=== PATIENT | female | born 1955 | race Caucasian/White ===

== ENCOUNTER → 2016-12-17 | Outpatient (CLI) | payer OTHER ==
--- NOTE | 2016-12-17 12:02 | MM ---
Reason for exam: additional evaluation requested from prior study. Last mammogram was performed 1 year ago. History: Patient is postmenopausal and has history of bilateral breast cancer at age 55. Malignant left breast needle localization of both breasts, January 06, 2012. Lumpectomy of the left breast, January 06, 2012. Malignant left mammotome panel of the left breast, December 17, 2011. Radiation therapy of the left breast, 2011. Benign right mammotome panel of the right breast, July 07, 2007. Implant Removal of both breasts, 1992. Took hormonal contraceptives for 6 months beginning at age 20. Taking antineoplastic for 5 years beginning at age 55. Physical Findings: Nurse did not find any significant physical abnormalities on exam. MG Diagnostic Mammo w CAD BINTA Bilateral CC and MLO view(s) were taken. Prior study comparison: December 17, 2015, bilateral MG diagnostic mammo w CAD BINTA. November 06, 2014, bilateral MG diagnostic mammo w CAD BINTA. October 24, 2013, mammogram, performed at [facility]. The breast tissue is heterogeneously dense. This may lower the sensitivity of mammography. Focal asymmetry in the right breast is unchanged and in the left posterior therapy change. These results were verbally communicated with the patient and result sheet given to the patient on 12/17/16. ASSESSMENT: Benign, BI-RAD 2 RECOMMENDATION: Routine screening mammogram of both breasts in 1 year.
== END | disposition home or self-care (01) ==
LOC: RADMAMWWP 10:59
PROVIDERS: ATTEND Obstetrics & Gynecology
DX: R92.8 Other abnormal and inconclusive findings on diagnostic imaging of breast (principal)

== ENCOUNTER → 2018-01-25 | Outpatient (CLI) | payer OTHER ==
--- NOTE | 2018-01-26 18:09 | BD ---
EXAMINATION TYPE: Bone Density DATE OF EXAM: 01/25/2018 COMPARISON: NONE CLINICAL HISTORY: 62-year-old female disorder of bone density Height: 61 Weight: 105.6 FRAX RISK QUESTIONS: Alcohol (3 or more units per day): no Family History (Parent hip fracture): no Glucocorticoids (More than 3mos): no (Ex: prednisone, prednisolone, methylprednisolone, dexamethasone, and hydrocortisone). History of Fracture in Adulthood: no Secondary Osteoporosis: 1. Type 1 Diabetes: no 2. Hyperthyroidism: no 3. Menopause before 45: no 4. Malnutrition: no 5. Chronic liver disease: no Rheumatoid Arthritis: no Current Tobacco Use: no RISK FACTORS HISTORY OF: Family History of Osteoporosis: yes Active: yes Diet low in dairy products/other sources of calcium: low in dairy but takes calcium Postmenopausal woman: age 50 Lost more than 2 inches in height since high school: no MEDICATIONS: zetia, ambien Thyroid Medications: levothyroxine 125mcg How Long: since age 18 Additional History: EXAM MEASUREMENTS: Bone mineral densitometry was performed using the [employer] System. Bone mineral density as measured about the Lumbar spine is: ----- L1-L4(G/cm2): 0.968 T Score Values are as follows: ----- L2: -1.9 ----- L3: -1.6 ----- L4: -2.0 ----- L1-L4: -1.8 Bone mineral density has: increased 2.3 % since study of: 12.17.2015 Bone mineral density about the R hip (g/cm2): 0.779 Bone mineral density about the L hip (g/cm2): 0.747 T Score values are as follows: -----R Neck: -1.9 -----L Neck: -2.1 -----R Total: -1.9 -----L Total: -2.2 Bone mineral density has: -7.0 % since study of: 12.17.2015 IMPRESSION: Osteopenia (T Score between -2.5 and -1). There is slightly increased risk of fracture and the patient may be considered for treatment. Re-Screen 2-5 years. NOTE: T-SCORE=SD OF THE YOUNG ADULT MEAN.
--- NOTE | 2018-01-27 10:08 | MM ---
Reason for exam: screening (asymptomatic). Last mammogram was performed 1 year and 1 month ago. History: Patient is postmenopausal and has history of bilateral breast cancer at age 55. Malignant left breast needle localization of both breasts, January 06, 2012. Lumpectomy of the left breast, January 06, 2012. Malignant left mammotome panel of the left breast, December 17, 2011. Radiation therapy of the left breast, 2011. Benign right mammotome panel of the right breast, July 07, 2007. Implant Removal of both breasts, 1992. Took hormonal contraceptives for 6 months beginning at age 20. Taking antineoplastic for 5 years beginning at age 55. Physical Findings: A clinical breast exam by your physician is recommended on an annual basis and results should be correlated with mammographic findings. MG 3D Screening Mammo W/Cad Bilateral CC and MLO view(s) were taken. Prior study comparison: December 17, 2016, bilateral MG diagnostic mammo w CAD BINTA. December 17, 2015, bilateral MG diagnostic mammo w CAD BINTA. Previous mammotome biopsy in the right breast. Global asymmetry in the right breast are unchanged. Post surgical deformity in the left breast. No significant changes when compared with prior studies. ASSESSMENT: Benign, BI-RAD 2 RECOMMENDATION: Routine screening mammogram of both breasts.
== END | disposition home or self-care (01) ==
LOC: RADMAMWWP 13:59
PROVIDERS: ATTEND Family Medicine
DX: Z12.31 Encounter for screening mammogram for malignant neoplasm of breast (principal); M85.80 Other specified disorders of bone density and structure, unspecified site
CPT/HCPCS: 77063; 77067; 77080

== ENCOUNTER → 2019-02-28 | Outpatient (CLI) | payer OTHER ==
--- NOTE | 2019-03-02 13:22 | MM ---
Reason for exam: screening (asymptomatic). Last mammogram was performed 1 year and 1 month ago. History: Patient is postmenopausal and has history of bilateral breast cancer at age 55. Malignant left breast needle localization of both breasts, January 06, 2012. Lumpectomy of the left breast, January 06, 2012. Malignant left mammotome panel of the left breast, December 17, 2011. Radiation therapy of the left breast, 2011. Benign right mammotome panel of the right breast, July 07, 2007. Implant Removal of both breasts, 1992. Took hormonal contraceptives for 6 months beginning at age 20. Taking antineoplastic for 5 years beginning at age 55. Physical Findings: A clinical breast exam by your physician is recommended on an annual basis and results should be correlated with mammographic findings. MG Screening Mammo w CAD Bilateral CC and MLO view(s) were taken. Prior study comparison: January 25, 2018, bilateral MG 3d screening mammo w/cad. December 17, 2016, bilateral MG diagnostic mammo w CAD BINTA. The breast tissue is heterogeneously dense. This may lower the sensitivity of mammography. Previous mammotome biopsy in the right breast. Post surgical and post therapy changes left breast. Right lower inner focal asymmetry is unchanged. No significant changes when compared with prior studies. ASSESSMENT: Benign, BI-RAD 2 RECOMMENDATION: Routine screening mammogram of both breasts in 1 year.
== END | disposition home or self-care (01) ==
LOC: RADMAMWWP 14:00
PROVIDERS: ATTEND Family Medicine
DX: Z12.31 Encounter for screening mammogram for malignant neoplasm of breast (principal)
CPT/HCPCS: 77067

== ENCOUNTER → 2020-04-15 | Outpatient (CLI) | payer MEDICARE, OTHER ==
--- NOTE | 2020-04-15 14:34 | MM ---
Reason for exam: additional evaluation requested from prior study. Last mammogram was performed 1 year and 2 months ago. History: Patient is postmenopausal and has history of bilateral breast cancer at age 55. Malignant left breast needle localization of both breasts, January 06, 2012. Lumpectomy of the left breast, January 06, 2012. Malignant left mammotome panel of the left breast, December 17, 2011. Radiation therapy of the left breast, 2011. Benign right mammotome panel of the right breast, July 07, 2007. Implant Removal of both breasts, 1992. Took hormonal contraceptives for 6 months beginning at age 20. Took antineoplastic for 5 years beginning at age 55. Physical Findings: Nurse did not find any significant physical abnormalities on exam. MG 3D Diag Mammo W/Cad BINTA Bilateral CC and MLO view(s) were taken. Prior study comparison: February 28, 2019, bilateral MG screening mammo w CAD. January 25, 2018, bilateral MG 3d screening mammo w/cad. The breast tissue is heterogeneously dense. This may lower the sensitivity of mammography. Previous mammotome biopsy in the right breast. Post surgical changes left breast. No significant new findings when compared with previous films. These results were verbally communicated with the patient and result sheet given to the patient on 04/15/20. ASSESSMENT: Benign, BI-RAD 2 RECOMMENDATION: Routine screening mammogram of both breasts in 1 year.
--- NOTE | 2020-04-16 07:19 | BD ---
EXAMINATION TYPE: Axial Bone Density DATE OF EXAM: 04/15/2020 COMPARISON: 01/25/2018 CLINICAL HISTORY: Height: 60.5 IN Weight: 109 LBS RISK FACTORS HISTORY OF: Family History of Osteoporosis: YES MOTHER Active: YES Diet low in dairy products/other sources of calcium: YES Postmenopausal woman: AGE 50 MEDICATIONS: Thyroid Medications: YES Which medication: Levothyroxine How Lon + YEARS Osteoporosis Medications: NOT NOW Which medication: Fosamax How Long: TOOK PREVIOUSLY FOR 1 YEAR Additional Medications: CALCIUM, VIT D, LEVOTHYROXINE, ZETIA, AMBIEN, Additional History: BREAST CANCER WITH RADIATION EXAM MEASUREMENTS: Bone mineral densitometry was performed using the [employer]. Bone mineral density as measured about the Lumbar spine is: ----- L1-L4(G/cm2): 0.882 T Score Values are as follows: ----- L2: -2.5 ----- L3: -1.9 ----- L4: -3.4 ----- L1-L4: -2.5 Bone mineral density has: Decreased -10.2% since study of: 01/25/2018 Bone mineral density about the R hip (g/cm2): 0.770 Bone mineral density about the L hip (g/cm2): 0.738 T Score values are as follows: -----R Neck: -1.9 -----L Neck: -2.2 -----R Total: -1.9 -----L Total: -2.3 Bone mineral density has: Decreased -0.8% since study of: 01/25/2018 IMPRESSION: Osteoporosis lumbar spine. NOTE: T-SCORE=SD OF THE YOUNG ADULT MEAN.
== END | disposition home or self-care (01) ==
LOC: RADMAMWWP 13:42
PROVIDERS: ATTEND Family Medicine
DX: Z08 Encounter for follow-up examination after completed treatment for malignant neoplasm (principal); M81.0 Age-related osteoporosis without current pathological fracture; Z85.3 Personal history of malignant neoplasm of breast; Z86.000 Personal history of in-situ neoplasm of breast; Z90.12 Acquired absence of left breast and nipple
CPT/HCPCS: 77080; 77066; G0279; 77062

== ENCOUNTER 2020-04-30 09:41 | Day surgery (SDC) | payer MEDICARE, OTHER ==
[2020-04-24 10:47] VITALS: BMI 20.7
[~2020-04-30 09:41] MED LIST: LACTATED RINGERS 1,000 ML IV SCH
[2020-04-30 10:16] VITALS: TEMP 98.4
[2020-04-30] MEDS ORDERED: SCOPOLAMINE 1.5MG/72HR PATCH TRANSDERM ONE (10:23)
[2020-04-30] MEDS ORDERED: LIDOCAINE 1% INJ 10MG/ML (20 ML MDV) ONE (10:44)
[2020-04-30] MEDS ORDERED: fentaNYL (PF) 50 MCG/ML 2 ML AMP ONE (10:44)
[2020-04-30] MEDS ORDERED: MIDAZOLAM 2 MG/2 ML VIAL ONE (10:44)
[2020-04-30] MEDS ORDERED: PROPOFOL 10 MG/ML 20 ML VIAL IV ONE (10:44)
--- NOTE | 2020-04-30 11:17 | P.PCN ---
Date of Procedure: 04/30/20 Procedure(s) Performed: BRIEF HISTORY: Patient is a 64-year-old pleasant white female scheduled for an elective colonoscopy as a part of evaluation of positive cologuard. Her last colonoscopy was 12 years ago. PROCEDURE PERFORMED: Colonoscopy with biopsy and tattooing with Jessica ink.. PREOPERATIVE DIAGNOSIS: Positive cologuard. IV sedation per Anesthesia. PROCEDURE: After informed consent was obtained, the patient, was brought into the endoscopy unit. IV sedation was administered by Anesthesia under continuous monitoring. Digital rectal examination was normal. Initially the Olympus CF-160 flexible video colonoscope was then inserted in the rectum, gradually advanced into the cecum without any difficulty. Careful examination was performed as the scope was gradually being withdrawn. Ileocecal valve and the appendiceal orifice were visualized and appeared normal. Prep was excellent. Mucosa of the cecum, ascending colon, transverse colon, appeared normal. In the distal descending colon at 45 cm from the anal verge there was a 3-4 cm submucosal mass identified with normal-appearing overlying mucosa. Multiple biopsies were done in this area. Tattooing with Jessica ink was performed. Rest of the descending colon, sigmoid colon, and rectum appeared normal. Retroflexion was performed in the rectum and no lesions were seen. The patient tolerated the procedure well. IMPRESSION: 3-4 cm submucosal mass in the distal descending colon at 40 cm from the anal verge status post multiple biopsies followed by tattooing with Jessica ink Rest of the colon appeared normal RECOMMENDATIONS: Findings of this examination were discussed with the patient as well as her family. She was advised to follow with the biopsy results. She is scheduled for CT of abdomen and pelvis next week and she will be seen in office in a week.
[2020-04-30 11:31] VITALS: BP 131/74; PULSE 105; RESP 20
== END 2020-04-30 12:12 | disposition home or self-care (01) ==
LOC: ORWHC2ENDO 09:41
PROVIDERS: ATTEND Internal Medicine Gastroenterology
DX: K63.89 Other specified diseases of intestine (principal); E07.9 Disorder of thyroid, unspecified; Z88.2 Allergy status to sulfonamides; Z88.0 Allergy status to penicillin; Z79.899 Other long term (current) drug therapy; Z79.890 Hormone replacement therapy; Z98.890 Other specified postprocedural states; Z91.89 Other specified personal risk factors, not elsewhere classified; Z87.898 Personal history of other specified conditions
CPT/HCPCS: 93005; 88305; 45380; 45381; J2250; J2001; J3010; J2704; 44404

== ENCOUNTER → 2020-05-01 | Outpatient (CLI) | payer MEDICARE, OTHER ==
[2020-05-01 07:40] LABS: African American GFR (CKD) >90 (>60 ml/min/1.73 sqM); Blood Urea Nitrogen 11 mg/dL (7-17); Non-African American GFR(CKD) >90 (>60 ml/min/1.73 sqM)
--- NOTE | 2020-05-01 09:55 | CT ---
EXAMINATION TYPE: CT abdomen pelvis w con DATE OF EXAM: 05/01/2020 COMPARISON: NONE HISTORY: 64-year-old female D12.4, Extrinsic colon mass per colonoscopy. TECHNIQUE: Contiguous axial scanning of the abdomen and pelvis following administration of 100 ml Iso alycia 300 IV contrast. Delayed images through the kidneys and coronal/sagittal reconstructions perform ed. CT DLP: 340.6 mGycm Automated exposure control for dose reduction was used. FINDINGS: Heart normal size without pericardial effusion. Lung bases clear without pleural effusion. Liver normal size. There may been mild underlying fatty infiltration. No focal lesion is seen. Portal venous system is patent. Normal distal tapering of the bile duct. Gallbladder, adrenal glands, kidneys, spleen, and pancreas appear within normal limits. No dilated small bowel, free fluid, free air. No mesenteric or retroperitoneal lymphadenopathy. A few scattered, but nonenlarged mesenteric lymph nodes measure up to 4 mm. Oral contrast has only progressed to the rectum. No significant stool burden. No pericolonic inflamma tory change. There is a heterogeneously enhancing focal rounded thickening along the inferior margin of the distal transverse colon prior to the splenic flexure, axial image 27 and coronal image 24 measuring 2.4 cm wide by 2.4 cm AP by 2.2 cm craniocaudal. This appears mural based and separate from adjacent structu res. Bladder is urine distended. Uterus anteverted. Small bilateral ovaries. No abnormal fluid collection in the pelvis or pelvic lymphadenopathy. Bones: Moderate to advanced degenerative disc disease L5-S1. Facet arthropathy over lumbar spine with trace grade 1 retrolisthesis at L2-L3. IMPRESSION: 1. HETEROGENEOUS ENHANCING FOCAL ROUNDED THICKENING ALONG THE INFERIOR MARGIN OF THE DISTAL TRANSVERS E COLON, PRIOR TO THE SPLENIC FLEXURE MEASURING 2.4 CM. SUSPECTED SUBMUCOSAL MASS WITH DIFFERENTIAL C ONSIDERATIONS INCLUDING GIST, CARCINOID, AND VARIOUS MESENCHYMAL TUMORS. COLON CANCER SHOULD STILL BE EXCLUDED. 2. NO SUSPICIOUS LYMPHADENOPATHY OR OTHER MASSES ARE SEEN.
== END | disposition home or self-care (01) ==
LOC: RADCTMAIN 06:57
PROVIDERS: ATTEND Internal Medicine Gastroenterology
DX: R93.3 Abnormal findings on diagnostic imaging of other parts of digestive tract (principal); D12.4 Benign neoplasm of descending colon
CPT/HCPCS: 82565; 84520; 74177; 36415; Q9967 ×2

== ENCOUNTER → 2020-06-24 | Outpatient (CLI) | payer MEDICARE ==
[2020-06-24 16:28] LABS: HCT 41.4 % (34.0-46.0); HGB 13.9 gm/dL (11.4-16.0); MCHC 33.5 g/dL (31.0-37.0); MCV 83.7 fL (80.0-100.0); Mean Platelet Volume 6.8; Platelet Count 259 k/uL (150-450); RBC 4.95 m/uL (3.80-5.40); RDW 12.8 % (11.5-15.5); WBC 6.8 k/uL (3.8-10.6)
[2020-06-24 16:42] LABS: Potassium 4.3 mmol/L (3.5-5.1)
== END | disposition home or self-care (01) ==
LOC: LABPAT 15:37
PROVIDERS: ATTEND Surgery
DX: Z01.818 Encounter for other preprocedural examination (principal); K63.9 Disease of intestine, unspecified
CPT/HCPCS: 36415; 80051; 85027

== ENCOUNTER 2020-06-30 09:00 | Inpatient (IN) | payer MEDICARE ==
[~2020-06-30 09:00] MED LIST changes: +ACETAMINOPHEN TAB 500 MG TAB PO PRN; +ALVIMOPAN 12 MG CAPSULE PO PRN; +DEXAMETHASONE SOD PHOSPHATE 4 MG/ML 1 ML VIAL IV ONE; +HEPARIN SODIUM,PORCINE 5,000 UNIT/ML 1 ML VIAL SQ PRN; +HYDROmorphone 0.5 MG/0.5 ML SYRINGE IVP PRN; -LACTATED RINGERS 1,000 ML IV SCH; +LIDOCAINE 1% (10MG/ML) FOR IV START INTRADERMA PRN; +MIDAZOLAM 2 MG/2 ML VIAL IV PRN; +ONDANSETRON 4 MG/2 ML VIAL IVP ONE; +metroNIDAZOLE-NS PMX 500 MG in SALINE 1 100ML.BAG IVPB PRN
[2020-06-30] MEDS ORDERED: LACTATED RINGERS 1,000 ML IV ONE ×2 (10:39→13:32)
[2020-06-30] MEDS ORDERED: NALOXONE 0.4 MG/ML 1 ML VIAL IV PRN (10:41)
[2020-06-30] MEDS ORDERED: NALBUPHINE 10 MG/ML (1 ML AMP) IV PRN (10:41)
[2020-06-30] MEDS ORDERED: MIDAZOLAM 2 MG/2 ML VIAL IVP ONE (11:23)
[2020-06-30] MEDS ORDERED: HEPARIN SODIUM,PORCINE 5,000 UNIT/ML 1 ML VIAL ONE ×2 (11:50→12:09)
--- NOTE | 2020-06-30 11:58 | P.GSHP ---
History of Present Illness H&P Date: 06/30/20 Chief Complaint: Colon mass 64-year-old female here today for colon resection. Patient was found on colonoscopy to have a submucosal mass in the region of the splenic flexure. Biopsies were benign. CAT scan confirmed a mass in the distal transverse colon and the submucosal region. By palpation this mass was firm and suspicious per GI. This area was tattooed. Patient is otherwise asymptomatic. She underwent colonoscopy because of a positive cologuard test. Past Medical History Past Medical History: Cancer, Hyperlipidemia, Osteoarthritis (OA), Pneumonia, Thyroid Disorder Additional Past Medical History / Comment(s): BREAST CANCER -LEFT BREAST 2011- had radiation tx, "tumor in lining of colon", overactive bladder, "prone to UTI's" History of Any Multi-Drug Resistant Organisms: None Reported Past Surgical History: Appendectomy, Breast Surgery, Tubal Ligation Additional Past Surgical History / Comment(s): LEFT LUMPECTOMY, LEFT BREAST BIOPSY , BILATERAL BREAST IMPLANTS AND THAN REMOVED(prior to breast cancer dx) Past Anesthesia/Blood Transfusion Reactions: Motion Sickness, Postoperative Nausea & Vomiting (PONV) Smoking Status: Never smoker - Past Family History Father Family Medical History: Cancer Mother Family Medical History: Cancer Son(s) Family Medical History: Cancer Additional Family Medical History / Comment(s): skin Brother(s) Family Medical History: Cancer Additional Family Medical History / Comment(s): skin Medications and Allergies Home Medications Medication Instructions Recorded Confirmed Type Ezetimibe [Zetia] 10 mg PO HS 04/24/20 06/30/20 History Levothyroxine Sodium [Synthroid] 100 mcg PO DAILY 04/24/20 06/30/20 History Multivitamins, Thera [Multivitamin 1 tab PO DAILY 04/24/20 06/30/20 History (formulary)] Zolpidem [Ambien] 2.5 mg PO HS PRN 04/24/20 06/30/20 History Aspirin [Adult Low Dose Aspirin EC] 81 mg PO HS 06/23/20 06/30/20 History Calcium + Vitamin D(Dose Unk) 1 tab PO HS 06/23/20 06/30/20 History Cyclobenzaprine [Flexeril] 2.5 mg PO HS PRN 06/23/20 06/30/20 History Magnesium 250 mg PO HS 06/23/20 06/30/20 History Allergies Allergy/AdvReac Type Severity Reaction Status Date / Time ampicillin Allergy Rash/Hives Verified 06/30/20 10:46 Sulfa (Sulfonamide Allergy Unknown Verified 06/30/20 10:46 Antibiotics) Surgical - Exam Vital Signs Temp Pulse Resp BP Pulse Ox 98.7 F 110 H 16 140/79 100 06/30/20 11:00 06/30/20 11:00 06/30/20 11:00 06/30/20 11:00 06/30/20 11:00 Physical exam: General: Well-developed, well-nourished HEENT: Normocephalic, sclerae nonicteric Abdomen: Nontender, nondistended Extremities: No edema Neuro: Alert and oriented Assessment and Plan (1) Colonic mass Narrative/Plan: 64-year-old female with mass involving the distal transverse colon. This was confirmed by CAT scan. We'll proceed with segmental resection at this time. Risks of bleeding, infection, scarring, numbness, hernia, splenic injury, anastomotic dehiscence, possible need for ostomy, nephro ureteral injury, anesthesia related complications. She understands and wishes to proceed. Current Visit: Yes Status: Acute Code(s): K63.89 - OTHER SPECIFIED DISEASES OF INTESTINE SNOMED Code(s): 949752375
--- NOTE | 2020-06-30 11:58 | P.ANPRN ---
Procedure Note - Anesthesia - Epidural/Spinal Epidural Date of Procedure: 06/30/20 Procedure Start Time: : Procedure Stop Time: 11:36 Location of Patient: PreOp Indication: Acute Post-Operative Pain, Requested by Surgeon Sedation Type: Sedate with meaningful contact maintained Preparation: Sterile Dressing Position: Sitting Catheter: Indwelling Needle Guage: 18 Injectate: Test Dose Lidocaine1.5% w/1:200,000 epi Blood Aspirated: No Pain Paresthesia on Injection Noted: No Events: Uneventful and Well Tolerated (Catheter taped at 11 cm rosales on skin.)
[2020-06-30] MEDS ORDERED: SCOPOLAMINE 1.5MG/72HR PATCH TRANSDERM ONE (12:01)
[2020-06-30] MEDS ORDERED: SUCCINYLCHOLINE CHLORIDE 100 MG/5 ML SYR IV ONE (12:09)
[2020-06-30] MEDS ORDERED: fentaNYL (PF) 50 MCG/ML 2 ML AMP ONE (12:09)
[2020-06-30] MEDS ORDERED: NEOSTIGMINE 1 MG/ML 10 ML VIAL ONE (12:09)
[2020-06-30] MEDS ORDERED: LIDOCAINE 1% INJ 10MG/ML (20 ML MDV) ONE (12:09)
[2020-06-30] MEDS ORDERED: PROPOFOL 10 MG/ML 20 ML VIAL IV ONE (12:09)
[2020-06-30] MEDS ORDERED: ROCURONIUM 10 MG/ML (5 ML VIAL) IV ONE (12:09)
[2020-06-30] MEDS ORDERED: GLYCOPYRROLATE 0.2 MG/ML 2 ML VIAL ONE (12:09)
[2020-06-30] MEDS ORDERED: METOCLOPRAMIDE 5 MG/ML 2 ML VIAL IVP PRN (13:38)
[2020-06-30] MEDS ORDERED: HYDROmorphone 1 MG/ML 1 ML SYRINGE IVP PRN (13:38)
[2020-06-30] MEDS ORDERED: BENZOCAINE/MENTHOL LOZENG 1 EACH LOZENGE MUCOUS MEM PRN (13:38)
--- NOTE | 2020-06-30 13:44 | P.OP ---
Date of Procedure: 06/30/20 Procedure(s) Performed: PREOPERATIVE DIAGNOSIS: Transverse colon mass POSTOPERATIVE DIAGNOSIS: Same PROCEDURE: Partial colectomy SURGEON: Tony EBL: 25 mL ANESTHESIA: General COMPLICATIONS: None OPERATIVE PROCEDURE: Patient place in the operative table in the supine position. The patient was placed under general anesthesia. The abdomen was prepped and draped in usual sterile fashion. A vertical incision was made extending from the supra to infraumbilical location. The fascia was divided as well. The Bookwalter retractor was utilized. The patient's mass was easily identified in the distal transverse colon. The patient had a redundant transverse colon. The mass was approximately 2-2.5 cm in maximum diameter. This had an atypical appearance to the overlying serosa. The area was not adherent to any other structures in the were no similar findings elsewhere in the abdomen after the colon and small bowel were fully inspected. Liver likewise appeared normal. 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 A partial resection took place. The bowel was divided proximal to that site using a linear 75 stapler. The bowel was divided distal to that in a similar fashion. The mesentery was divided using the LigaSure device. A vuig-vw-isso anastomosis then took place. The antimesenteric portion of the staple line was removed. The linear stapler was fired along the tenia in an antimesenteric fashion. The remaining defect was closed using a TX 60 device. A 3-0 GI silk crotch stitch was placed. The TX 60 stapler line was imbricated using 3-0 GI silk sutures as well. The anastomosis was widely patent. The abdomen was irrigated with saline. There was no evidence of any bleeding. The midline fascia was then reapproximated using 2 separate double-stranded #1 PDS sutures. The subcutaneous tissues were closed using 3-0 Vicryl sutures. The skin was then closed using sky. Sterile dressings were then applied. DISPOSITION: Stable to recovery room
[2020-06-30] MEDS: ROPIVACAINE 250 MG, HYDROMORPHONE (PF) 5 MG in SODIUM CHLORIDE 0.9% 200 ML EPIDURAL PRN ×3 (13:52→15:02)
[2020-06-30] MEDS: LACTATED RINGERS 1,000 ML IV SCH (16:20)
[2020-06-30] MEDS: D5-0.45% NACL WITH KCL 20MEQ/L 1,000 ML IV SCH (17:21)
[2020-06-30] MEDS: CALCIUM CARB-VIT D 500 MG-5 MCG TAB PO SCH (21:15)
[2020-06-30] MEDS: MAGNESIUM OXIDE 400 MG TAB PO SCH (21:15)
[2020-06-30] MEDS: FAMOTIDINE 20 MG/2 ML VIAL IV SCH (21:15)
[2020-06-30] MEDS: EZETIMIBE 10 MG TAB PO SCH (21:15)
--- NOTE | 2020-06-30 23:04 | CONS ---
CONSULTATION REASON FOR CONSULTATION: Advice regarding hyperlipidemia, DJD and other medical issues, requested by Dr. Jimenez. HISTORY OF PRESENT ILLNESS: This 64-year-old woman with past medical history of hyperlipidemia history of DJD, history of pneumonia, hypothyroidism, being followed by Dr. Dailey in the outpatient setting underwent partial colectomy for transverse colon mass. The patient is being closely monitored. There is no history of chest pain. No palpitations. No headache, loss of consciousness, nausea, vomiting, diarrhea, fever, rigor or chills at this time. PAST MEDICAL HISTORY: Hyperlipidemia, DJD, history of pneumonia and hypothyroidism. MEDICATIONS: Home medications are: Ambien 2.5 mg at bedtime p.r.n., multivitamins one p.o. daily, Magnesium, Synthroid 100 mcg p.o. daily, Zetia 10 mg, Flexeril, calcium with vitamin D, aspirin. ALLERGIES: AMPICILLIN, SULFA. FAMILY HISTORY: History of skin cancer in the family. SOCIAL HISTORY: No history of smoking. No history of alcohol intake. REVIEW OF SYSTEMS: ENT: No diminished vision. No diminished hearing. CARDIOVASCULAR: No angina or palpitations. RESPIRATORY: As mentioned earlier. GI: No nausea or vomiting. : No dysuria. NERVOUS SYSTEM: No numbness or weakness. ALLERGY/IMMUNOLOGY: No asthma, hayfever. MUSCULOSKELETAL: As mentioned earlier. HEMATOLOGY/ONCOLOGY: As mentioned earlier. ENDOCRINE as mentioned earlier. CONSTITUTIONAL: As mentioned earlier. DERMATOLOGY: Negative. RHEUMATOLOGY negative. PSYCHIATRY as mentioned earlier. PHYSICAL EXAM: Patient is alert, oriented x3. The pulse is 95. Blood pressure 144/70, respirations 16, temp is normal, pulse ox is 100 percent on 2 L. HEENT is conjunctivae normal. NECK: No JVD. CARDIOVASCULAR: S1, S2 muffled. RESPIRATORY: Breath sounds diminished in the bases. No rhonchi. No crackles. ABDOMEN: Soft, status post surgery. LEGS: No edema. No swelling. NERVOUS SYSTEM: Higher functions as mentioned earlier. Moves all four limbs. No focal deficits. LYMPHATICS: No lymph nodes palpable in the neck, axillae or groin. SKIN: No ulcers, rashes or bleeding. JOINTS: No active deforming arthropathy. LABS: Preoperative labs are CBC and CMP within normal limits. ASSESSMENT: 1. Status post partial colectomy for colon cancer transverse colon mass. 2. History of hyperlipidemia. 3. History of degenerative joint disease. 4. History of pneumonia. 5. History of hypothyroidism. 6. History of breast cancer. 7. History of appendectomy. 8. History of breast surgery. 9. History of anxiety. 10.FULL CODE. RECOMMENDATIONS AND DISCUSSION: This 64-year-old woman who presented with multiple medical issues, we will monitor the patient closely, continue the current medications, management and symptomatic treatment. Recommend initiate the home medications. DVT prophylaxis. Incentive spirometry. Otherwise, closely follow with Dr. Jimenez and the patient may be asked to follow up with Dr. Dailey after discharge. Thank you Dr. Jimenez for letting us participate in the care of this patient. MMODL / IJN: [id number] /
[2020-07-01] MEDS: D5-0.45% NACL WITH KCL 20MEQ/L 1,000 ML IV SCH ×2 (00:57→11:00)
[2020-07-01] MEDS: HEPARIN SODIUM,PORCINE 5,000 UNIT/ML 1 ML VIAL SQ SCH ×4 (00:57→23:56)
[2020-07-01] MEDS: LEVOTHYROXINE 100 MCG TAB PO SCH (06:01)
--- NOTE | 2020-07-01 06:29 | P.PN ---
Progress Note - Text Progress Note Date: 07/01/20 Patient without complaints. Tolerating clears. Denies headache or weakness. Pain 5/10. Epidural at 6 ml/hr. Epidural site clean and dry. POD#1 s/p colectomy Assessment and plan: will continue epidural. can increase rate later if needed, patient currently feels some lightheadedness. i would wait to increase rate until that began to resolve
[2020-07-01] MEDS: LACTATED RINGERS 1,000 ML IV SCH (06:56)
[2020-07-01] MEDS: ALVIMOPAN 12 MG CAPSULE PO SCH ×2 (07:37→20:42)
[2020-07-01] MEDS: MULTIVITAMINS, THERA 1 EACH TAB PO SCH (07:37)
[2020-07-01] MEDS: FAMOTIDINE 20 MG/2 ML VIAL IV SCH ×2 (07:38→20:42)
[2020-07-01 09:09] LABS: African American GFR (CKD) 38.8 (60.0-200.0); Anion Gap 6.2 mmol/L (4.00-12.00); BUN/Creat Ratio 11.88 Ratio (12.00-20.00); Calcium 8.6 mg/dL (8.7-10.3); Carbon Dioxide 23.8 mmol/L (21.6-31.8); Non-African American GFR(CKD) 33.5 (60.0-200.0); Potassium 5.1 mmol/L (3.5-5.5)
[2020-07-01 09:16] LABS: HCT 31.5 % (37.2-46.3); MCH 27.9 pg (27.0-32.0); MCHC 31.7 g/dL (32.0-37.0); MCV 87.7 fL (80.0-97.0); Mean Platelet Volume 10.5 fL (9.5-12.2); Platelet Count 379 X 10*3/uL (140-440); RBC 3.59 X 10*6/uL (4.10-5.20); RDW 12.8 % (11.5-14.5); WBC 17.25 X 10*3/uL (4.50-10.00)
[2020-07-01] MEDS ORDERED: SODIUM CHLORIDE 0.9% 1,000 ML IV ONE (09:27)
[2020-07-01 09:58] LABS: Basophils # (A) 0.03 X 10*3/uL (0.00-0.10); Basophils % (A) 0.2 %; Eosinophils # (A) 0 X 10*3/uL (0.04-0.35); Eosinophils % (A) 0 %; Lymphocytes % (A) 8.7 %; Monocytes # (A) 2.13 X 10*3/uL (0.20-1.00); Monocytes % (A) 12.3 %; Neutrophils # (A) 13.51 X 10*3/uL (1.80-7.70); Neutrophils % (A) 78.3 %
[2020-07-01] MEDS: ONDANSETRON 4 MG/2 ML VIAL IVP PRN (11:09)
--- NOTE | 2020-07-01 13:05 | P.PN ---
<Karol Tamez - Last Filed: 07/01/20 12:57> Subjective Progress Note Date: 07/01/20 CHIEF COMPLAINT: Transverse colon mass HISTORY OF PRESENT ILLNESS: Patient is status post partial colectomy. She has epidural in place for pain control. She reports no pain at this time. She denies any nausea or vomiting. She has been tachycardic heart rate as high as 136. She had decreased urine output. She reports of feeling dry, thirsty and dizzy. She was able to tolerate clear liquids. Afebrile. WBC 17.25 patient did receive a dose of steroids. Hgb 10 creatinine 1.6 potassium 5.1 glucose 171 PHYSICAL EXAM: VITAL SIGNS: Reviewed. GENERAL: Well-developed in no acute distress. HEENT: No sclera icterus. Extraocular movements grossly intact. Moist buccal mucosa. Head is atraumatic, normocephalic. ABDOMEN: Soft. Nondistended. Incisional dressing about a 2 cm sized area of blood saturation noted in the middle of the incisional dressing. NEUROLOGIC: Alert and oriented. Cranial nerves II through XII grossly intact. ASSESSMENT: 1. Transverse colon mass status post partial colectomy, postop day #1 2. Sinus tachycardia 3. Acute kidney injury and low urine output PLAN: -Patient given a 1 L IV fluid bolus this morning for tachycardia and low urine output -Due to elevated glucose level and potassium on the higher side will discontinue the D5 half normal saline with potassium IV fluids and switch patient normal saline at 100 mL an hour -Repeat CBC and BMP in a.m. -Encouraged incentive spirometer use -Continue epidural -Continue to monitor urine output -Continue telemetry -GI prophylaxis Pepcid and DVT prophylaxis subcu heparin Physician [place] Controller note has been reviewed by physician. Signing provider agrees with the documented findings, assessment, and plan of care. Objective - Vital Signs Vital signs: Vital Signs Temp 97.3 F L 07/01/20 07:37 Pulse 136 H 07/01/20 07:37 Resp 18 07/01/20 07:38 BP 143/88 07/01/20 07:37 Pulse Ox 100 07/01/20 07:37 Intake & Output 06/30/20 07/01/20 07/01/20 18:59 06:59 18:59 Intake Total 1755.6 Output Total 115 245 Balance 1640.6 -245 Weight 48.4 kg Intake: IV 1755.6 Output: Urine 90 245 Estimated Blood Loss 25 Other: Voiding Method Indwelling Catheter Indwelling Catheter # Voids 5 - Labs CBC & Chem 7: 07/01/20 06:10 07/01/20 06:10 Labs: Abnormal Lab Results - Last 24 Hours (Table) 07/01/20 07/01/20 Range/Units 06:10 06:10 WBC 17.25 H (4.50-10.00) X 10*3/uL RBC 3.59 L (4.10-5.20) X 10*6/uL Hgb 10.0 L (12.0-15.0) g/dL Hct 31.5 L (37.2-46.3) % MCHC 31.7 L (32.0-37.0) g/dL Immature Gran # 0.08 H (0.00-0.04) X 10*3/uL Neutrophils # 13.51 H (1.80-7.70) X 10*3/uL Monocytes # 2.13 H (0.20-1.00) X 10*3/uL Eosinophils # 0 L (0.04-0.35) X 10*3/uL Creatinine 1.6 H (0.6-1.5) mg/dL Est GFR (CKD-EPI)AfAm 38.8 L (60.0-200.0) Est GFR (CKD-EPI)NonAf 33.5 L (60.0-200.0) BUN/Creatinine Ratio 11.88 L (12.00-20.00) Ratio Glucose 171 H (70-110) mg/dL Calcium 8.6 L (8.7-10.3) mg/dL <Glenn Jimenez - Last Filed: 07/01/20 14:59> Subjective As above. Patient complaining of a dry mouth. She does have a scopolamine patch in place. Her urine output appeared to be low this morning. She was tachycardic. She was tachycardic preoperatively however as well. Blood pressure is been stable. She is afebrile. White blood cell count elevated. Hemoglobin at 10. On exam patient mildly distended. Incision with minimal bloody drainage. Will check repeat CBC at this time. Continue IV hydration. Objective - Vital Signs Vital signs: Vital Signs Temp 98.5 F 07/01/20 13:59 Pulse 110 H 07/01/20 13:59 Resp 18 07/01/20 13:59 BP 146/77 07/01/20 13:59 Pulse Ox 99 07/01/20 13:59 Intake & Output 06/30/20 07/01/20 07/01/20 18:59 06:59 18:59 Intake Total 1755.6 Output Total 115 245 110 Balance 1640.6 -245 -110 Weight 48.4 kg Intake: IV 1755.6 Output: Urine 90 245 110 Estimated Blood Loss 25 Other: Voiding Method Indwelling Catheter Indwelling Catheter # Voids 5 - Labs CBC & Chem 7: 07/01/20 06:10 07/01/20 06:10 Labs: Abnormal Lab Results - Last 24 Hours (Table) 07/01/20 07/01/20 Range/Units 06:10 06:10 WBC 17.25 H (4.50-10.00) X 10*3/uL RBC 3.59 L (4.10-5.20) X 10*6/uL Hgb 10.0 L (12.0-15.0) g/dL Hct 31.5 L (37.2-46.3) % MCHC 31.7 L (32.0-37.0) g/dL Immature Gran # 0.08 H (0.00-0.04) X 10*3/uL Neutrophils # 13.51 H (1.80-7.70) X 10*3/uL Monocytes # 2.13 H (0.20-1.00) X 10*3/uL Eosinophils # 0 L (0.04-0.35) X 10*3/uL Creatinine 1.6 H (0.6-1.5) mg/dL Est GFR (CKD-EPI)AfAm 38.8 L (60.0-200.0) Est GFR (CKD-EPI)NonAf 33.5 L (60.0-200.0) BUN/Creatinine Ratio 11.88 L (12.00-20.00) Ratio Glucose 171 H (70-110) mg/dL Calcium 8.6 L (8.7-10.3) mg/dL Assessment and Plan (1) Colonic mass Current Visit: Yes Status: Acute Code(s): K63.89 - OTHER SPECIFIED DISEASES OF INTESTINE SNOMED Code(s): 642904254
[2020-07-01] MEDS: SODIUM CHLORIDE 0.9% 1,000 ML IV SCH ×2 (14:38→21:28)
[2020-07-01] MEDS ORDERED: SODIUM CHLORIDE 0.9% 500 ML 500 ML IV ONE (14:53)
[2020-07-01 15:16] LABS: Basophils % (A) 0 %; Eosinophils # (A) 0.3 k/uL (0-0.7); Eosinophils % (A) 2 %; HCT 24.1 % (34.0-46.0); Lymphocytes # (A) 1.9 k/uL (1.0-4.8); Lymphocytes % (A) 12 %; MCH 27.8 pg (25.0-35.0); MCHC 32.9 g/dL (31.0-37.0); MCV 84.5 fL (80.0-100.0); Mean Platelet Volume 7.3; Monocytes % (A) 7 %; Neutrophils # (A) 12.7 k/uL (1.3-7.7); Neutrophils % (A) 79 %; Platelet Count 291 k/uL (150-450); RBC 2.85 m/uL (3.80-5.40); RDW 13.1 % (11.5-15.5); WBC 16.2 k/uL (3.8-10.6)
[2020-07-01 15:20] LABS: HGB 7.9 gm/dL (11.4-16.0)
--- NOTE | 2020-07-01 16:01 | XR ---
EXAMINATION TYPE: XR chest 1V portable DATE OF EXAM: 07/01/2020 Comparison: None Clinical History: 64-year-old female CHF Findings: Heart normal size. Aorta within normal limits. Mild interstitial prominence. No sizable effusion or f rank consolidation. Impression: Mild interstitial prominence which is nonspecific. Correlation can be made to exclude mild pulmonary vascular congestion. There is no shila pulmonary edema or sizable pleural effusion.
--- NOTE | 2020-07-01 16:09 | PN ---
PROGRESS NOTE DATE OF SERVICE: 07/01/2020 This 64-year-old woman who was admitted after gastric surgery is improving significantly. No chest pain. No palpitations. No fever. PHYSICAL EXAMINATION: Alert and oriented x3. Pulse is 110, blood pressure 140/77, respiration 18, temperature 98.7, pulse ox 99% on 2 L. HEENT: Conjunctivae normal. NECK: No jugular venous distention. CARDIOVASCULAR SYSTEM: S1, S2 muffled. RESPIRATORY SYSTEM: Breath sounds diminished at the bases. No rhonchi. No crackles. ABDOMEN: Soft, non-tender. NERVOUS SYSTEM: No focal deficit. LABS: WBC 17.2, hemoglobin 10, and creatinine is 1.6. Glucose 171, calcium is 8.6. ASSESSMENT: 1. Status post partial colectomy for colon cancer, a transverse colon mass. 2. History of hyperlipidemia. 3. History of degenerative joint disease. 4. Increased white count, possibly reactive. 5. Increased creatinine with mild acute renal failure. 6. Elevated random glucose. 7. Degenerative joint disease. 8. History of pneumonia. 9. History of hypothyroidism. 10.History of breast cancer. 11.History of appendectomy. 12.History of breast surgery. 13.History of anxiety. 14.FULL CODE. RECOMMENDATIONS AND DISCUSSION: I recommend to continue current medications, continue with the monitoring, symptomatic treatment. Incentive spirometry. Repeat labs. Closely follow with Dr. Jimenez. Further recommendations to follow. MMODL / IJN: [id number] /
--- NOTE | 2020-07-01 16:37 | P.PN ---
Progress Note - Text Progress Note Date: 07/01/20 Patient reevaluated this afternoon. Her repeat hemoglobin was 7.9. Looking back at her vital signs she was tachycardic preoperatively however in the immediate postop period until around 4-5 PM she had a normal heart rate. It then started to climb. She has felt somewhat faint at times. Denies any significant abdominal pain. On examination I do believe she is somewhat distended. A chest x-ray was obtained by the hospitalist service and reviewed by myself. She has a large amount of air within her stomach. This is likely contributing to her abdominal bloating. She says she has been belching. Discussed clinical scenario in detail with the patient and her daughter. I do believe she has bled postoperatively although doubt that there is significant ongoing bleeding given her relative stability. Will transfuse one unit PRBC at this time and continue with close observation. Discussed option of nasogastric tube placement which she would like to avoid if at all possible. We'll order simethicone chews to see if this will help alleviate some of the gastric distention. Keep nothing by mouth for now.
[2020-07-01 17:12] LABS: Appearance,Urine Clear (Clear); Bacteria,Urine Rare /hpf; Bilirubin,Urine Negative (Negative); Blood,Urine Small (Negative); Color,Urine Yellow; Glucose,Urine (UA) Negative (Negative); Hyaline Casts,Urine 24 /lpf (0-2); Ketones,Urine Negative (Negative); Leukocyte Esterase,Urine Moderate (Negative); Mucus,Urine Occasional /hpf; Nitrite,Urine Negative (Negative); Protein,Urine Trace (Negative); RBC,Urine 20 /hpf (0-5); Specific Gravity,Urine 1.009 (1.001-1.035); Squamous Epithelial Cell,Urine <1 /hpf (0-4); Urobilinogen,Urine <2.0 mg/dL (<2.0); WBC,Urine 16 /hpf (0-5)
[2020-07-01] MEDS: SIMETHICONE 80 MG CHEWABLE PO SCH ×2 (17:28→20:43)
[2020-07-01] MEDS: EZETIMIBE 10 MG TAB PO SCH (20:42)
[2020-07-01] MEDS: MAGNESIUM OXIDE 400 MG TAB PO SCH (20:43)
[2020-07-01] MEDS: CALCIUM CARB-VIT D 500 MG-5 MCG TAB PO SCH (20:43)
[2020-07-01] MEDS ORDERED: METOPROLOL TARTRATE 25 MG TAB PO STA (20:56)
[2020-07-01 21:30] LABS: Basophils % (A) 0 %; Eosinophils # (A) 0.1 k/uL (0-0.7); Eosinophils % (A) 1 %; HCT 26.2 % (34.0-46.0); HGB 9.1 gm/dL (11.4-16.0); Lymphocytes # (A) 2.8 k/uL (1.0-4.8); Lymphocytes % (A) 20 %; MCH 28.8 pg (25.0-35.0); MCHC 34.8 g/dL (31.0-37.0); MCV 82.7 fL (80.0-100.0); Monocytes % (A) 7 %; Neutrophils # (A) 9.9 k/uL (1.3-7.7); Neutrophils % (A) 70 %; Platelet Count 223 k/uL (150-450); RBC 3.16 m/uL (3.80-5.40); RDW 13.6 % (11.5-15.5)
[2020-07-02] MEDS: ROPIVACAINE 250 MG, HYDROMORPHONE (PF) 5 MG in SODIUM CHLORIDE 0.9% 200 ML EPIDURAL PRN (00:59)
[2020-07-02] MEDS: LACTATED RINGERS 1,000 ML IV SCH (02:07)
[2020-07-02] MEDS: LEVOTHYROXINE 100 MCG TAB PO SCH (05:33)
[2020-07-02 06:14] LABS: Albumin 3.5 g/dL (3.80-4.90); Albumin/Globulin Ratio 1.52 (1.60-3.17); Globulin 2.3 g/dL (1.6-3.3); Total Bilirubin 0.4 mg/dL (0.3-1.2); Total Protein 5.8 g/dL (6.2-8.2)
--- NOTE | 2020-07-02 07:02 | P.PN ---
Progress Note - Text Progress Note Date: 07/02/20 Postoperative day #2 status post , partial colectomy ,epidural catheter placed for postoperative analgesia, patient doing well epidural site okay, patient currently on combination of epidural infusion solution of Ropivacaine 0.0625% and Dilaudid 20 g per mL the infusion rate at 3 ml per hour , patient had no motor deficit epidural site okay , vital signs stable ,VAS 2 /10 , Assessment and plan= post operative day #2 patient doing well ,pain well controlled , there is no anesthesia related complications
[2020-07-02] MEDS: SODIUM CHLORIDE 0.9% 1,000 ML IV SCH ×2 (08:01→17:04)
[2020-07-02] MEDS: HEPARIN SODIUM,PORCINE 5,000 UNIT/ML 1 ML VIAL SQ SCH ×3 (08:01→23:46)
[2020-07-02] MEDS: FAMOTIDINE 20 MG/2 ML VIAL IV SCH ×2 (08:01→20:21)
[2020-07-02] MEDS: MULTIVITAMINS, THERA 1 EACH TAB PO SCH (08:02)
[2020-07-02] MEDS: ALVIMOPAN 12 MG CAPSULE PO SCH ×2 (08:02→20:21)
[2020-07-02] MEDS: SIMETHICONE 80 MG CHEWABLE PO SCH ×4 (08:02→20:22)
--- NOTE | 2020-07-02 11:10 | XR ---
Abdomen HISTORY: Distention Frontal view the abdomen submitted and correlated to prior CT scan 05/01/2020 There is a gas-distended stomach. Surgical sky are present in the midline. Gas-filled bowel loops are present with some prominence in the region of the proximal transverse colon, some retained fecal debris is suspected within the colon. Bone mineralization is maintained. Lung bases not entirely inc luded on the exam. Typical sky present in the distal transverse colon. IMPRESSION: Nonspecific findings, correlate to exclude bowel obstruction, consider follow-up as indic ated.
--- NOTE | 2020-07-02 11:50 | P.PN ---
<LeKarol otero - Last Filed: 07/02/20 12:08> Subjective Progress Note Date: 07/02/20 CHIEF COMPLAINT: Transverse colon mass HISTORY OF PRESENT ILLNESS: Patient is status post partial colectomy. She has epidural in place for pain control. She reports no pain at this time. Patient is status post 1 unit of blood and IV fluid bolus. Hemoglobin from last night is 9.1. CBC and BMP from this morning is still pending. Patient's heart rate has shown improvement. She reports feeling thirsty. Urine output is improving. She really wants to be restarted on her clear liquids. She has had occasional nausea. No vomiting. She denies any flatus or bowel movement. Also her dizziness has resolved. Afebrile. Abdominal x-ray: Nonspecific findings, correlate to exclude bowel obstruction, consider follow-up as indicated. Xray reviewed by Dr. Jimenez and he felt that there is no evidence of bowel obstruction. PHYSICAL EXAM: VITAL SIGNS: Reviewed. GENERAL: Well-developed in no acute distress. HEENT: No sclera icterus. Extraocular movements grossly intact. Moist buccal mucosa. Head is atraumatic, normocephalic. ABDOMEN: Soft. Mildly distended. Incisional dressing about a 2 cm sized area of blood saturation noted in the middle of the incisional dressing. NEUROLOGIC: Alert and oriented. Cranial nerves II through XII grossly intact. ASSESSMENT: 1. Transverse colon mass status post partial colectomy, postop day #2 2. Sinus tachycardia 3. Acute kidney injury and low urine output 4. UTI PLAN: -Add antibiotics for UTI -keep patient nothing by mouth -Continue to monitor hemoglobin -Repeat CBC and BMP in a.m. -Encouraged incentive spirometer use -Continue epidural -Continue to monitor urine output -Continue telemetry -GI prophylaxis Pepcid and DVT prophylaxis subcu heparin Physician [place] Man note has been reviewed by physician. Signing provider agrees with the documented findings, assessment, and plan of care. Objective - Vital Signs Vital signs: Vital Signs Temp 98.5 F 07/02/20 07:18 Pulse 91 07/02/20 07:18 Resp 20 07/02/20 07:18 BP 113/67 07/02/20 07:18 Pulse Ox 95 07/02/20 07:18 Intake & Output 07/01/20 07/02/20 07/02/20 18:59 06:59 18:59 Intake Total 2149 800 Output Total 260 800 Balance 1889 -800 800 Intake: IV 800 Sodium Chloride 0.9% 1, 800 000 ml @ 100 mls/hr IV . Q10H [facility] Rx#:[id number] Intake, IV Titration 1900 Amount D5-0.45% NaCl with KCl 400 20Meq/l 1,000 ml @ 100 mls/hr IV .Q10H [facility] Rx#: [id number] Sodium Chloride 0.9% 1, 1000 000 ml @ 999 mls/hr IV . Q1H1M [facility] Rx#:[id number] Sodium Chloride 0.9% 500 500 ml 500 ml @ 999 mls/hr IV .Q31M [facility] Rx#:[id number] Blood Product 249 Rc Pheresis 2 As3 Unit 249 [id number] Output: Urine 260 800 Other: Voiding Method Indwelling Catheter - Labs CBC & Chem 7: 07/01/20 21:12 07/01/20 06:10 Labs: Abnormal Lab Results - Last 24 Hours (Table) 07/01/20 07/01/20 07/01/20 Range/Units 06:10 14:59 15:02 WBC 16.2 H (3.8-10.6) k/uL RBC 2.85 L (3.80-5.40) m/uL Hgb 7.9 L D (11.4-16.0) gm/dL Hct 24.1 L (34.0-46.0) % Neutrophils # 12.7 H (1.3-7.7) k/uL Creatinine 1.6 H (0.6-1.5) mg/dL Est GFR (CKD-EPI)AfAm 38.8 L (60.0-200.0) Est GFR (CKD-EPI)NonAf 33.5 L (60.0-200.0) BUN/Creatinine Ratio 11.88 L (12.00-20.00) Ratio Glucose 171 H (70-110) mg/dL Calcium 8.6 L (8.7-10.3) mg/dL Total Protein 5.8 L (6.2-8.2) g/dL Albumin 3.50 L (3.80-4.90) g/dL Albumin/Globulin Ratio 1.52 L (1.60-3.17) g/dL Urine Protein (Negative) Urine Blood (Negative) Ur Leukocyte Esterase (Negative) Urine RBC (0-5) /hpf Urine WBC (0-5) /hpf Urine Bacteria (None) /hpf Hyaline Casts (0-2) /lpf Urine Mucus (None) /hpf Crossmatch See Detail 07/01/20 07/01/20 Range/Units 16:45 21:12 WBC 14.0 H (3.8-10.6) k/uL RBC 3.16 L (3.80-5.40) m/uL Hgb 9.1 L (11.4-16.0) gm/dL Hct 26.2 L (34.0-46.0) % Neutrophils # 9.9 H (1.3-7.7) k/uL Creatinine (0.6-1.5) mg/dL Est GFR (CKD-EPI)AfAm (60.0-200.0) Est GFR (CKD-EPI)NonAf (60.0-200.0) BUN/Creatinine Ratio (12.00-20.00) Ratio Glucose (70-110) mg/dL Calcium (8.7-10.3) mg/dL Total Protein (6.2-8.2) g/dL Albumin (3.80-4.90) g/dL Albumin/Globulin Ratio (1.60-3.17) g/dL Urine Protein Trace H (Negative) Urine Blood Small H (Negative) Ur Leukocyte Esterase Moderate H (Negative) Urine RBC 20 H (0-5) /hpf Urine WBC 16 H (0-5) /hpf Urine Bacteria Rare H (None) /hpf Hyaline Casts 24 H (0-2) /lpf Urine Mucus Occasional H (None) /hpf Crossmatch <Glenn Jimenez - Last Filed: 07/02/20 20:49> Subjective As above. Patient doing better today. Complaining of hunger today. X-ray reviewed. Some gastric distention persists. We'll begin clear liquids. Repeat hemoglobin noted at 8.6. We'll repeat labs tomorrow. Remove epidural and Mata tomorrow. Antibiotics initiated for possible urinary tract infection. Both son and daughter updated as to her plan of care. Objective - Vital Signs Vital signs: Vital Signs Temp 98.9 F 07/02/20 14:00 Pulse 110 H 07/02/20 14:00 Resp 16 07/02/20 14:00 BP 123/68 07/02/20 14:00 Pulse Ox 93 L 07/02/20 14:00 Intake & Output 07/02/20 07/02/20 07/03/20 06:59 18:59 06:59 Intake Total 800 Output Total 800 650 Balance -800 150 Intake: IV 800 Sodium Chloride 0.9% 1, 800 000 ml @ 100 mls/hr IV . Q10H [facility] Rx#:[id number] Output: Urine 800 650 - Labs CBC & Chem 7: 07/02/20 18:30 07/02/20 18:30 Labs: Abnormal Lab Results - Last 24 Hours (Table) 07/01/20 07/01/20 07/02/20 Range/Units 06:10 21:12 18:30 WBC 14.0 H (3.8-10.6) k/uL RBC 3.16 L 3.07 L (3.80-5.40) m/uL Hgb 9.1 L 8.6 L (11.4-16.0) gm/dL Hct 26.2 L 25.2 L (34.0-46.0) % Neutrophils # 9.9 H 8.6 H (1.3-7.7) k/uL Lymphocytes # 0.7 L (1.0-4.8) k/uL Sodium (137-145) mmol/L Carbon Dioxide (22-30) mmol/L BUN (7-17) mg/dL Glucose (74-99) mg/dL Total Protein 5.8 L (6.2-8.2) g/dL Albumin 3.50 L (3.80-4.90) g/dL Albumin/Globulin Ratio 1.52 L (1.60-3.17) g/dL 07/02/20 Range/Units 18:30 WBC (3.8-10.6) k/uL RBC (3.80-5.40) m/uL Hgb (11.4-16.0) gm/dL Hct (34.0-46.0) % Neutrophils # (1.3-7.7) k/uL Lymphocytes # (1.0-4.8) k/uL Sodium 131 L (137-145) mmol/L Carbon Dioxide 21 L (22-30) mmol/L BUN 18 H (7-17) mg/dL Glucose 124 H (74-99) mg/dL Total Protein 4.9 L (6.2-8.2) g/dL Albumin 2.8 L (3.80-4.90) g/dL Albumin/Globulin Ratio (1.60-3.17) g/dL Microbiology - Last 24 Hours (Table) 07/02/20 11:37 Urine Culture - Preliminary Urine,Catheterized Assessment and Plan (1) Colonic mass Current Visit: Yes Status: Acute Code(s): K63.89 - OTHER SPECIFIED DISEASES OF INTESTINE SNOMED Code(s): 987402359
[2020-07-02] MEDS ORDERED: LEVOFLOXACIN 500MG-D5W PMX 500 MG in DEXTROSE/WATER 1 100ML.BAG IVPB SCH (13:00)
[2020-07-02] MEDS: ONDANSETRON 4 MG/2 ML VIAL IVP PRN (15:13)
--- NOTE | 2020-07-02 17:36 | PN ---
PROGRESS NOTE DATE OF SERVICE: 07/02/2020 This 64-year-old woman who was admitted with partial colectomy and colon cancer had a transverse colon mass. The patient's abdominal x-ray showed nonspecific findings; correlate to exclude bowel obstruction. Dr. Jimenez is following the patient closely. White count has improved to 14 at this time. No chest pain. No palpitations. No fever. PHYSICAL EXAMINATION: Alert and oriented x3. Pulse is 110, blood pressure 123/60, respirations 16, temperature 98.9, pulse ox 96% on room air. HEENT: Conjunctivae normal. NECK: No jugular venous distention. CARDIOVASCULAR SYSTEM: S1, S2 muffled. RESPIRATORY SYSTEM: Breath sounds diminished at the bases. No rhonchi. No crackles. ABDOMEN: Soft. Mild diffuse distention. LEGS: No edema. No swelling. NERVOUS SYSTEM: No focal deficit. LABS: WBC 14, hemoglobin 9.1. ASSESSMENT: 1. Status post partial colectomy for colon cancer and a transverse colon mass. 2. History of hyperlipidemia. 3. History of degenerative joint disease. 4. Increased white count, possibly reactive. 5. Increased creatinine with mild acute renal failure. 6. Elevated random glucose. 7. Degenerative joint disease. 8. History of pneumonia. 9. History of hypothyroidism. 10.History of breast cancer. 11.History of appendectomy. 12.History of breast surgery. 13.History of anxiety. 14.FULL CODE. RECOMMENDATIONS AND DISCUSSION: I recommend to continue current management, continue with symptomatic treatment. Incentive spirometry. Otherwise, the cultures are negative so far. DVT prophylaxis. Closely follow with Surgery. Further recommendations to follow. MMODL / IJN: [id number] /
[2020-07-02 18:39] LABS: Basophils % (A) 0 %; Eosinophils # (A) 0.1 k/uL (0-0.7); Eosinophils % (A) 1 %; HCT 25.2 % (34.0-46.0); HGB 8.6 gm/dL (11.4-16.0); Lymphocytes # (A) 0.7 k/uL (1.0-4.8); Lymphocytes % (A) 7 %; MCV 82.2 fL (80.0-100.0); Mean Platelet Volume 6.9; Monocytes # (A) 0.4 k/uL (0-1.0); Monocytes % (A) 4 %; Neutrophils # (A) 8.6 k/uL (1.3-7.7); Neutrophils % (A) 87 %; Platelet Count 196 k/uL (150-450); RBC 3.07 m/uL (3.80-5.40); RDW 13.9 % (11.5-15.5)
[2020-07-02 18:57] LABS: ALT 16 U/L (4-34); AST 29 U/L (14-36); African American GFR (CKD) 69 (>60 ml/min/1.73 sqM); Albumin 2.8 g/dL (3.5-5.0); Albumin/Globulin Ratio 1.3; Alkaline Phosphatase 60 U/L (38-126); Anion Gap 5 mmol/L; Blood Urea Nitrogen 18 mg/dL (7-17); Calcium 8.6 mg/dL (8.4-10.2); Carbon Dioxide 21 mmol/L (22-30); Chloride 105 mmol/L (98-107); Globulin 2.1 g/dL; Glucose 124 mg/dL (74-99); Non-African American GFR(CKD) 60 (>60 ml/min/1.73 sqM); Potassium 4.4 mmol/L (3.5-5.1); Sodium 131 mmol/L (137-145); Total Bilirubin 0.4 mg/dL (0.2-1.3); Total Protein 4.9 g/dL (6.3-8.2)
[2020-07-02] MEDS: EZETIMIBE 10 MG TAB PO SCH (20:21)
[2020-07-02] MEDS: MAGNESIUM OXIDE 400 MG TAB PO SCH (20:21)
[2020-07-02] MEDS: CALCIUM CARB-VIT D 500 MG-5 MCG TAB PO SCH (20:21)
[2020-07-03 00:19] LABS: African American GFR (CKD) 54.9 (60.0-200.0); Anion Gap 10.9 mmol/L (4.00-12.00); BUN/Creat Ratio 19.17 Ratio (12.00-20.00); Calcium 8.5 mg/dL (8.7-10.3); Carbon Dioxide 16.1 mmol/L (21.6-31.8); Non-African American GFR(CKD) 47.4 (60.0-200.0); Potassium 5.1 mmol/L (3.5-5.5)
[2020-07-03] MEDS: LACTATED RINGERS 1,000 ML IV SCH (00:47)
[2020-07-03] MEDS: LEVOTHYROXINE 100 MCG TAB PO SCH (05:51)
[2020-07-03] MEDS: SODIUM CHLORIDE 0.9% 1,000 ML IV SCH ×2 (05:51→16:14)
--- NOTE | 2020-07-03 06:38 | P.PN ---
Progress Note - Text Progress Note Date: 07/03/20 Patient seen and examined. Pain well controlled with epidural. Patient is able to ambulate without difficulty. No residual weakness in lower extremities. Epidural catheter will be removed today. Will continue to follow.
[2020-07-03] MEDS: HEPARIN SODIUM,PORCINE 5,000 UNIT/ML 1 ML VIAL SQ SCH (07:43)
[2020-07-03 07:44] LABS: Basophils % (A) 0 %; Eosinophils # (A) 0.1 k/uL (0-0.7); Eosinophils % (A) 1 %; HCT 25.8 % (34.0-46.0); HGB 8.6 gm/dL (11.4-16.0); Lymphocytes # (A) 0.8 k/uL (1.0-4.8); Lymphocytes % (A) 11 %; MCHC 33.3 g/dL (31.0-37.0); Monocytes # (A) 0.5 k/uL (0-1.0); Monocytes % (A) 6 %; Neutrophils # (A) 6.3 k/uL (1.3-7.7); Neutrophils % (A) 81 %; Platelet Count 217 k/uL (150-450); RBC 3.07 m/uL (3.80-5.40); WBC 7.8 k/uL (3.8-10.6)
[2020-07-03] MEDS: FAMOTIDINE 20 MG/2 ML VIAL IV SCH ×2 (07:44→21:53)
[2020-07-03] MEDS: ALVIMOPAN 12 MG CAPSULE PO SCH ×2 (07:44→21:55)
[2020-07-03] MEDS ORDERED: SODIUM CHLORIDE 0.9% 500 ML 500 ML IV ONE (07:45)
[2020-07-03] MEDS: MULTIVITAMINS, THERA 1 EACH TAB PO SCH (07:45)
[2020-07-03] MEDS: SIMETHICONE 80 MG CHEWABLE PO SCH ×4 (07:45→21:54)
[2020-07-03 08:02] LABS: African American GFR (CKD) 69 (>60 ml/min/1.73 sqM); Anion Gap 4 mmol/L; Blood Urea Nitrogen 18 mg/dL (7-17); Calcium 8.7 mg/dL (8.4-10.2); Carbon Dioxide 23 mmol/L (22-30); Chloride 110 mmol/L (98-107); Glucose 88 mg/dL (74-99); Non-African American GFR(CKD) 60 (>60 ml/min/1.73 sqM); Potassium 4.9 mmol/L (3.5-5.1); Sodium 137 mmol/L (137-145)
--- NOTE | 2020-07-03 11:37 | P.PN ---
Subjective Progress Note Date: 07/03/20 CHIEF COMPLAINT: Transverse colon mass HISTORY OF PRESENT ILLNESS: Patient is status post partial colectomy. Her epidural and Mata catheter scheduled to be removed today. She did have one bloody bowel movement this morning. Hemoglobin prior to that bowel movement was 8.6. Patient denies any abdominal pain. She has been having some nausea. Denies any dizziness. Denies any shortness of breath or chest pain. Denies any palpitations. Heart rate did get up to 134 again. It is trending down to 103. She did receive another fluid bolus. She is afebrile. Urine output adequate. WBC 7.8 Hgb 8.6 creatinine 0.99 PHYSICAL EXAM: VITAL SIGNS: Reviewed. GENERAL: Well-developed in no acute distress. HEENT: No sclera icterus. Extraocular movements grossly intact. Moist buccal mucosa. Head is atraumatic, normocephalic. ABDOMEN: Soft. Mildly distended. Incision clean dry and intact NEUROLOGIC: Alert and oriented. Cranial nerves II through XII grossly intact. ASSESSMENT: 1. Transverse colon mass status post partial colectomy, postop day #3 2. Sinus tachycardia 3. Acute kidney injury and low urine output 4. UTI PLAN: -Continue antibiotics for UTI -Epidural and Mata catheter discontinued today -Advance diet to full liquids -Continue to monitor hemoglobin -Repeat CBC and BMP in a.m. -Encouraged incentive spirometer use -Continue telemetry -GI prophylaxis Pepcid and DVT prophylaxis subcu heparin Physician [employer] note has been reviewed by physician. Signing provider agrees with the documented findings, assessment, and plan of care. Objective - Vital Signs Vital signs: Vital Signs Temp 99.3 F 07/03/20 10:42 Pulse 113 H 07/03/20 10:42 Resp 16 07/03/20 10:42 BP 138/70 07/03/20 10:42 Pulse Ox 95 07/03/20 10:42 Intake & Output 07/02/20 07/03/20 07/03/20 18:59 06:59 18:59 Intake Total 800 1350 Output Total 650 850 Balance 150 -850 1350 Intake: IV 800 800 Sodium Chloride 0.9% 1, 800 800 000 ml @ 100 mls/hr IV . Q10H [facility] Rx#:[id number] Intake, IV Titration 550 Amount Levofloxacin 250Mg-D5w 50 Pmx 250 mg In Dextrose/ Water 1 50ml.bag @ 50 mls /hr IVPB Q24H [facility] Rx#: [id number] Sodium Chloride 0.9% 500 500 ml 500 ml @ 999 mls/hr IV .Q31M [facility] Rx#:[id number] Output: Urine 650 850 - Labs CBC & Chem 7: 07/03/20 11:55 07/03/20 06:46 Labs: Abnormal Lab Results - Last 24 Hours (Table) 07/02/20 07/02/20 07/02/20 Range/Units 06:16 18:30 18:30 RBC 3.07 L (3.80-5.40) m/uL Hgb 8.6 L (11.4-16.0) gm/dL Hct 25.2 L (34.0-46.0) % Neutrophils # 8.6 H (1.3-7.7) k/uL Lymphocytes # 0.7 L (1.0-4.8) k/uL Sodium 134 L 131 L (135-145) mmol/L Chloride (98-107) mmol/L Carbon Dioxide 16.1 L 21 L (21.6-31.8) mmol/L BUN 18 H (7-17) mg/dL Est GFR (CKD-EPI)AfAm 54.9 L (60.0-200.0) Est GFR (CKD-EPI)NonAf 47.4 L (60.0-200.0) Glucose 124 H (74-99) mg/dL Calcium 8.5 L (8.7-10.3) mg/dL Total Protein 4.9 L (6.3-8.2) g/dL Albumin 2.8 L (3.5-5.0) g/dL 07/03/20 07/03/20 Range/Units 06:46 06:46 RBC 3.07 L (3.80-5.40) m/uL Hgb 8.6 L (11.4-16.0) gm/dL Hct 25.8 L (34.0-46.0) % Neutrophils # (1.3-7.7) k/uL Lymphocytes # 0.8 L (1.0-4.8) k/uL Sodium (135-145) mmol/L Chloride 110 H (98-107) mmol/L Carbon Dioxide (21.6-31.8) mmol/L BUN 18 H (7-17) mg/dL Est GFR (CKD-EPI)AfAm (60.0-200.0) Est GFR (CKD-EPI)NonAf (60.0-200.0) Glucose (74-99) mg/dL Calcium (8.7-10.3) mg/dL Total Protein (6.3-8.2) g/dL Albumin (3.5-5.0) g/dL Microbiology - Last 24 Hours (Table) 07/02/20 11:37 Urine Culture - Preliminary Urine,Catheterized
[2020-07-03] MEDS: LEVOFLOXACIN 250MG-D5W PMX 250 MG in DEXTROSE/WATER 1 50ML.BAG IVPB SCH (12:05)
[2020-07-03 12:45] LABS: Basophils % (A) 0 %; Eosinophils # (A) 0.1 k/uL (0-0.7); Eosinophils % (A) 1 %; HCT 29.1 % (34.0-46.0); HGB 9.3 gm/dL (11.4-16.0); Hypochromasia Moderate; Lymphocytes # (A) 0.7 k/uL (1.0-4.8); Lymphocytes % (A) 8 %; MCH 28.9 pg (25.0-35.0); MCHC 32.1 g/dL (31.0-37.0); Mean Platelet Volume 7.8; Monocytes # (A) 0.6 k/uL (0-1.0); Monocytes % (A) 7 %; Neutrophils # (A) 7.3 k/uL (1.3-7.7); Neutrophils % (A) 83 %; Platelet Count 175 k/uL (150-450); RBC 3.23 m/uL (3.80-5.40); RDW 13.9 % (11.5-15.5); WBC 8.8 k/uL (3.8-10.6)
[2020-07-03 12:49] LABS: MCV 89.9 fL (80.0-100.0)
--- NOTE | 2020-07-03 12:59 | CDI ---
Documentation Clarification Form Date: 07/03/2020 11:43:00 AM From: Kristy Carlisle RN, CCDS Admit Date: 06/30/2020 10:01:00 AM Patient Name: Beatriz Johnston Visit Number: [id number] Discharge Date: ATTENTION: The Clinical Documentation Specialists (CDI) and [facility] Coding Staff appreciate your assistance in clarifying documentation. Please respond to the clarification below the line at the bottom and electronically sign. The CDI & [facility] Coding staff will review the response and follow-up if needed. Please note: Queries are made part of the Legal Health Record. If you have any questions, please contact the author of this message via ITS. Dr. Glenn Jimenez UTI was documented in the progress notes starting on 07/02/20. Please render your opinion on UTI cause if known. History/Risk Factors: Colon Mass, Breast Ca, Overactive bladder, prone to UTI's Clinical Indicators: 64-year-old female who present for elective procedure on 06/30 and had a partial colectomy related to transverse colon mass. The surgical operative screen indicate a Mata catheter was inserted on 06/30/20 at 12:44. physician order. 07/02 Vital Signs at 07:18 113/67 106 16 98.5 95 % RA. 07/01 WBC 17.25, 16.2, 14.0 07/01 Urinalysis: Ur Leukocyte Esterase Moderate, urine WBC 16 3.3 Urine Culture: No growth Treatment Monitor urine output Levaquin 500 mg IVPB Q 24 Hrs, 07/02: change to 250 MG IVPB on 07/03 Please document the condition that these clinical indicators signify, whether Present on Admission, and cause if known: UTI due to Mata Catheter -Specify organism, if known UTI not due Mata Catheter (POA) Contaminated specimen Other, please specify Unable to determine Present on Admission: Yes No (Last Revision: January 2017) UTI felt to be not present after cultures negative. MTDD
[2020-07-03 16:01] LABS: Prothrombin Time 10.4 sec (9.0-12.0)
[2020-07-03] MEDS: ONDANSETRON 4 MG/2 ML VIAL IVP PRN (16:14)
--- NOTE | 2020-07-03 16:18 | PN ---
PROGRESS NOTE DATE OF SERVICE: 07/03/2020 This 64-year-old woman who was admitted after partial colectomy for colon cancer, is improving significantly. No chest pain. No palpitations. No fever. Surgery is following the patient closely. The white count is normal, it is 8.8. The patient was started on empiric antibiotics at this time. No chest pain. No palpitations. No fever. The patient is tachycardiac. PHYSICAL EXAMINATION: The patient is alert and oriented x3. Pulse 120, blood pressure 153/83, respirations 16, temperature 99.1, pulse ox 95% on room air. HEENT: Conjunctivae normal. NECK: No jugular venous distention. CARDIOVASCULAR: S1, S2 muffled. RESPIRATORY: Breath sounds diminished at the bases. No rhonchi, no crackles. ABDOMEN: Soft, status post surgery. LEGS: No edema. No swelling. NERVOUS SYSTEM: No focal deficits. LABS: WBC 8.8, hemoglobin 9.3. Sodium is 137, potassium 4.9. ASSESSMENT: 1. Status post partial colectomy for colon cancer with transverse colon mass. 2. History of hyperlipidemia. 3. Tachycardia. 4. History of degenerative joint disease. 5. Increased WBC, possibly reactive. 6. Increased creatinine with mild acute renal failure. 7. Elevated random glucose. 8. Degenerative joint disease. 9. History of pneumonia. 10.History of hypothyroidism. 11.History of breast cancer. 12.History of appendectomy. 13.History of breast surgery. 14.History of anxiety. 15.FULL CODE. RECOMMENDATIONS AND DISCUSSION: In this 64-year-old woman who presented with multiple medical issues, we will monitor the patient closely. Continue the current medications, continue symptomatic treatment. Monitor hemoglobin closely. The patient had a small amount of red blood per stools. We will monitor the hemoglobin closely and the patient has received one unit transfusion. Closely follow with Surgery. Continue with DVT prophylaxis. Incentive spirometry. Further recommendation to follow. MMODL / IJN: [id number] /
[2020-07-03 19:12] LABS: HGB 9.5 gm/dL (11.4-16.0); MCH 27.9 pg (25.0-35.0); MCHC 33.9 g/dL (31.0-37.0); Mean Platelet Volume 8.3; Platelet Count 264 k/uL (150-450); RDW 14.1 % (11.5-15.5); WBC 11.4 k/uL (3.8-10.6)
[2020-07-03 19:16] LABS: MCV 82.3 fL (80.0-100.0)
[2020-07-03] MEDS: CALCIUM CARB-VIT D 500 MG-5 MCG TAB PO SCH (21:54)
[2020-07-03] MEDS: EZETIMIBE 10 MG TAB PO SCH (21:54)
[2020-07-03] MEDS: MAGNESIUM OXIDE 400 MG TAB PO SCH (21:54)
[2020-07-04] MEDS: SODIUM CHLORIDE 0.9% 1,000 ML IV SCH ×3 (02:32→21:44)
[2020-07-04] MEDS: LEVOTHYROXINE 100 MCG TAB PO SCH (06:06)
[2020-07-04] MEDS: LACTATED RINGERS 1,000 ML IV SCH (06:52)
[2020-07-04 07:02] LABS: African American GFR (CKD) 89 (>60 ml/min/1.73 sqM); Anion Gap 7 mmol/L; Blood Urea Nitrogen 13 mg/dL (7-17); Calcium 8.7 mg/dL (8.4-10.2); Carbon Dioxide 20 mmol/L (22-30); Chloride 110 mmol/L (98-107); Glucose 101 mg/dL (74-99); Non-African American GFR(CKD) 77 (>60 ml/min/1.73 sqM); Potassium 3.7 mmol/L (3.5-5.1); Sodium 137 mmol/L (137-145)
[2020-07-04 08:58] LABS: Basophils # (A) 0.01 X 10*3/uL (0.00-0.10); Basophils % (A) 0.1 %; Eosinophils # (A) 0.11 X 10*3/uL (0.04-0.35); Eosinophils % (A) 1.3 %; HCT 23.9 % (37.2-46.3); HGB 8.1 g/dL (12.0-15.0); Lymphocytes % (A) 9.8 %; MCH 28.4 pg (27.0-32.0); MCHC 33.9 g/dL (32.0-37.0); MCV 83.9 fL (80.0-97.0); Mean Platelet Volume 10.7 fL (9.5-12.2); Monocytes # (A) 0.72 X 10*3/uL (0.20-1.00); Monocytes % (A) 8.8 %; Neutrophils % (A) 79.6 %; Platelet Count 247 X 10*3/uL (140-440); RBC 2.85 X 10*6/uL (4.10-5.20); RDW 13.8 % (11.5-14.5); WBC 8.17 X 10*3/uL (4.50-10.00)
[2020-07-04] MEDS ORDERED: Potassium Replacement Protocol 1 EACH MISC MISCELLANE PRN (09:07)
[2020-07-04] MEDS: SIMETHICONE 80 MG CHEWABLE PO SCH ×4 (09:11→21:43)
[2020-07-04] MEDS: FAMOTIDINE 20 MG/2 ML VIAL IV SCH ×2 (09:11→21:44)
[2020-07-04] MEDS: LEVOFLOXACIN 250MG-D5W PMX 250 MG in DEXTROSE/WATER 1 50ML.BAG IVPB SCH (09:12)
[2020-07-04] MEDS: MULTIVITAMINS, THERA 1 EACH TAB PO SCH (09:12)
[2020-07-04] MEDS ORDERED: POTASSIUM CHLORIDE ER 20 MEQ TAB.ER PO SCH (10:00)
[2020-07-04] MEDS ORDERED: ACETAMINOPHEN TAB 325 MG TAB PO PRN (13:09)
--- NOTE | 2020-07-04 13:10 | P.PN ---
Subjective Progress Note Date: 07/04/20 CHIEF COMPLAINT: Transverse colon mass HISTORY OF PRESENT ILLNESS: Patient is status post partial colectomy. Patient has had her epidural and Mata catheter removed. She reports no abdominal pain. She is urinating without difficulty. Patient continues to have loose bloody bowel movements. She reports up to about 6 bowel movements. Her hemoglobin this morning did drop to 8.1. She remains tachycardic and is short of breath with movement. She is scheduled for another unit of blood today. She is afebrile. WBC is 8.17 creatinine 0.81. She is currently on full liquids. Her urine culture was negative. PHYSICAL EXAM: VITAL SIGNS: Reviewed. GENERAL: Well-developed in no acute distress. HEENT: No sclera icterus. Extraocular movements grossly intact. Moist buccal mucosa. Head is atraumatic, normocephalic. ABDOMEN: Soft. Mildly distended. Incision clean dry and intact NEUROLOGIC: Alert and oriented. Cranial nerves II through XII grossly intact. ASSESSMENT: 1. Transverse colon mass status post partial colectomy, postop day #4 2. Sinus tachycardia 3. Acute kidney injury and low urine output. Resolved 4. Mata catheter associated UTI 5. Symptomatic anemia PLAN: -Hemoglobin has dropped to 8.1. Patient is symptomatic with shortness of breath and tachycardia. She will be transfused with 1 unit of packed red blood cells. -Continue to monitor bowel movements for blood -Continue to monitor hemoglobin -Continue antibiotics for UTI -Continue full liquids -Add ensure 1 can daily -Encouraged incentive spirometer use -Continue telemetry -GI prophylaxis Pepcid and DVT prophylaxis SCDs Physician Tail Board Man note has been reviewed by physician. Signing provider agrees with the documented findings, assessment, and plan of care. Objective - Vital Signs Vital signs: Vital Signs Temp 98 F 07/04/20 07:45 Pulse 120 H 07/04/20 08:00 Resp 16 07/04/20 07:45 BP 144/84 07/04/20 07:45 Pulse Ox 96 07/04/20 07:45 Intake & Output 07/03/20 07/04/20 07/04/20 18:59 06:59 18:59 Intake Total 1704 100 236 Output Total 500 Balance 1204 100 236 Intake: IV 800 Sodium Chloride 0.9% 1, 800 000 ml @ 100 mls/hr IV . Q10H [facility] Rx#:[id number] Intake, IV Titration 550 Amount Levofloxacin 250Mg-D5w 50 Pmx 250 mg In Dextrose/ Water 1 50ml.bag @ 50 mls /hr IVPB Q24H [facility] Rx#: [id number] Sodium Chloride 0.9% 500 500 ml 500 ml @ 999 mls/hr IV .Q31M [facility] Rx#:[id number] Oral 354 100 236 Output: Urine 500 Uretheral (Mata) 500 Other: Voiding Method Bedside Commode # Voids 2 # Bowel Movements 1 - Labs CBC & Chem 7: 07/04/20 06:26 07/04/20 06:26 Labs: Abnormal Lab Results - Last 24 Hours (Table) 07/01/20 07/03/20 07/04/20 Range/Units 15:02 18:46 06:26 WBC 11.4 H (3.8-10.6) k/uL RBC 3.40 L 2.85 L (3.80-5.40) m/uL Hgb 9.5 L 8.1 L (11.4-16.0) gm/dL Hct 28.0 L 23.9 L (34.0-46.0) % Lymphocytes # 0.80 L (0.90-5.00) X 10*3/uL Chloride (98-107) mmol/L Carbon Dioxide (22-30) mmol/L Glucose (74-99) mg/dL Crossmatch See Detail 07/04/20 Range/Units 06:26 WBC (3.8-10.6) k/uL RBC (3.80-5.40) m/uL Hgb (11.4-16.0) gm/dL Hct (34.0-46.0) % Lymphocytes # (0.90-5.00) X 10*3/uL Chloride 110 H (98-107) mmol/L Carbon Dioxide 20 L (22-30) mmol/L Glucose 101 H (74-99) mg/dL Crossmatch Microbiology - Last 24 Hours (Table) 07/02/20 11:37 Urine Culture - Final Urine,Catheterized
--- NOTE | 2020-07-04 15:19 | CDI ---
Documentation Clarification Form Date: 07/04/2020 02:32:55 PM From: Kristy Carlisle RN, CCDS Admit Date: 06/30/2020 10:01:00 AM Patient Name: Beatriz Johnston Visit Number: [id number] Discharge Date: ATTENTION: The Clinical Documentation Specialists (CDI) and [facility] Coding Staff appreciate your assistance in clarifying documentation. Please respond to the clarification below the line at the bottom and electronically sign. The CDI & [facility] Coding staff will review the response and follow-up if needed. Please note: Queries are made part of the Legal Health Record. If you have any questions, please contact the author of this message via ITS. Dr. Glenn Jimenez Acute blood loss anemia is documented in the surgical progress note on 07/04/20. She is postop day #4. Please provide further clarification of acute blood loss anemia. Patients Admitting Diagnosis: Transverse colon mass Post-Operative Diagnosis: Same 06/30 Procedure performed: partial colectomy History/Risk Factors: Left Breast Cancer, Tumor in lining of colon Clinical Indicators: 64-year-old female present on 06/30 for elective procedure related to transverse colon mass. The operative note has an estimated blood loss of 25ml. 3 Surgery progress notes: Doubt that there is significant ongoing bleeding given her relative stability. Will transfuse one unit PRBC, continue with close observation. 3/ HGB 10.0, HCT 31.5, repeat HGB 7.9, HCT 24.1 3.2 @ 20:00(post transfusion) HGB 9.1, HCT 26.2 07/01 Vital signs: 123/81 129 14 97.8 98 % RA / Surgery progress: Patient had a secondary smaller bloody bowel movement. She has sinus tachycardia. 07/04 Surgery progress notes: Patient continues to have loose bloody bowel movements. She reports up to about 6 bowel movements. Her hemoglobin this morning did drop to 8.1; she remains tachycardic and is short of breath with movement. 07/04 Vital signs: 144/84 122 16 98.0 96 % RA Treatment: Telemetry Monitoring Monitor CBC daily Transfuse with 1 unit PRBC (total =2 units PRBC) Continue to monitor bowel movements In order to accurately reflect this patients severity of illness, please clarify if the acute blood loss anemia: -is a complication of surgical procedure (specify) -is an expected outcome of the surgical procedure (specify) -is related to co-morbid condition(s) of (specify) -Other please specify -Unable to determine (Last Revision: June 2019) Acute blood loss anemia appeared to be related to postoperative bleeding at the anastomosis given the loose bloody stools that occurred several days later. This would be considered an unexpected outcome of the surgical procedure. MTDD
--- NOTE | 2020-07-04 16:19 | PN ---
PROGRESS NOTE DATE OF SERVICE: 07/04/2020 This 64-year-old woman was admitted after partial colectomy, had some GI bleeding at this time. The patient received one unit transfusion and hemoglobin 9.5 yesterday and today it is 8.1. The patient has some abdominal distention. Patient complains of mild shortness of breath also. Surgery is following the patient closely. No chest pain. No palpitations. No fever. PHYSICAL EXAMINATION: GENERAL: Alert and oriented x3. VITAL SIGNS: Pulse is 120, blood pressure 143/87, respirations 16, temperature 98.6, pulse ox 98% on room air. HEENT: Conjunctivae pale. Oral mucosa moist. NECK: No jugular venous distention. No carotid bruits. No lymph node enlargement. RESPIRATORY: Breath sounds diminished at the bases. HEART: S1 and S2, muffled. ABDOMEN: Soft, mild diffuse distention, status post surgery. EXTREMITIES: No edema, no swelling. NERVOUS: No focal deficits. LABS: WBC 8.17, hemoglobin is 8.1. ASSESSMENT: 1. Status post partial colectomy for colon cancer of the transverse colon. 2. Anemia secondary from blood loss. 3. History of hyperlipidemia. 4. Tachycardia. 5. History of degenerative joint disease. 6. Increased WBC possibly reactive. 7. Increased creatinine with mild acute renal failure. 8. Elevated random glucose. 9. Degenerative joint disease. 10.History of pneumonia. 11.History of hypothyroidism. 12.History of breast cancer. 13.History of appendectomy. 14.History of breast surgery. 15.History of anxiety. 16.FULL CODE. RECOMMENDATIONS AND DISCUSSION: I recommend to continue current management and continue symptomatic treatment. I would recommend follow the patient closely with Surgery. I recommend a portable chest x-ray and BNP also. Surgery is monitor the patient closely regarding the anemia. Guarded prognosis. Further recommendations to follow. Continue the rest of the medications. MMODL / IJN: [id number] /
--- NOTE | 2020-07-04 16:29 | XR ---
EXAMINATION TYPE: XR chest 1V portable DATE OF EXAM: 07/04/2020 COMPARISON: Chest x-ray 07/01/2020 HISTORY: Shortness of breath TECHNIQUE: Single frontal view of the chest is obtained. FINDINGS: No evident pneumothorax. Bibasilar increased attenuation is present with blunting the cost ophrenic angles. Mild prominence of interstitium again noted. Cardiomediastinal silhouette is stable. There are overlying leads. IMPRESSION: Probable basilar effusions and associated atelectasis versus interstitial edema, pneumon ia not excluded.
[2020-07-04] MEDS: CALCIUM CARB-VIT D 500 MG-5 MCG TAB PO SCH (21:43)
[2020-07-04] MEDS: MAGNESIUM OXIDE 400 MG TAB PO SCH (21:43)
[2020-07-04] MEDS: EZETIMIBE 10 MG TAB PO SCH (21:44)
[2020-07-05] MEDS: LACTATED RINGERS 1,000 ML IV SCH (05:48)
[2020-07-05] MEDS: LEVOTHYROXINE 100 MCG TAB PO SCH (05:54)
[2020-07-05 06:06] LABS: Basophils % (A) 0 %; Eosinophils # (A) 0.4 k/uL (0-0.7); Eosinophils % (A) 5 %; HCT 29.7 % (34.0-46.0); HGB 9.7 gm/dL (11.4-16.0); Lymphocytes # (A) 1.1 k/uL (1.0-4.8); Lymphocytes % (A) 14 %; MCH 27.6 pg (25.0-35.0); MCHC 32.7 g/dL (31.0-37.0); MCV 84.5 fL (80.0-100.0); Mean Platelet Volume 6.7; Monocytes # (A) 0.6 k/uL (0-1.0); Monocytes % (A) 7 %; Neutrophils # (A) 5.9 k/uL (1.3-7.7); Neutrophils % (A) 73 %; Platelet Count 276 k/uL (150-450); RBC 3.52 m/uL (3.80-5.40); RDW 14.8 % (11.5-15.5)
[2020-07-05 06:16] LABS: African American GFR (CKD) >90 (>60 ml/min/1.73 sqM); Anion Gap 3 mmol/L; Blood Urea Nitrogen 8 mg/dL (7-17); Calcium 8.2 mg/dL (8.4-10.2); Carbon Dioxide 23 mmol/L (22-30); Chloride 112 mmol/L (98-107); Glucose 100 mg/dL (74-99); Non-African American GFR(CKD) 81 (>60 ml/min/1.73 sqM); Potassium 3.6 mmol/L (3.5-5.1); Sodium 138 mmol/L (137-145)
[2020-07-05] MEDS: SODIUM CHLORIDE 0.9% 1,000 ML IV SCH ×2 (07:58→17:03)
[2020-07-05] MEDS: MULTIVITAMINS, THERA 1 EACH TAB PO SCH (07:59)
[2020-07-05] MEDS: SIMETHICONE 80 MG CHEWABLE PO SCH ×4 (07:59→21:58)
[2020-07-05] MEDS: FAMOTIDINE 20 MG/2 ML VIAL IV SCH ×2 (07:59→22:03)
[2020-07-05] MEDS: LEVOFLOXACIN 250 MG TAB PO SCH (07:59)
[2020-07-05] MEDS ORDERED: POTASSIUM CHLORIDE ER 20 MEQ TAB.ER PO SCH (09:00)
--- NOTE | 2020-07-05 11:25 | P.PN ---
Progress Note - Text Progress Note Date: 07/05/20 Patient is resting comfortably in bed. She did have a bowel movement with some old blood in it today. Her hemoglobin is stable at 9. On exam vital signs are stable. Abdomen soft. Status post colectomy. Patient will be observed. She's had no further signs of bleeding.
[2020-07-05] MEDS ORDERED: FUROSEMIDE 10 MG/ML 2 ML VIAL IV ONE (12:12)
--- NOTE | 2020-07-05 20:07 | PN ---
PROGRESS NOTE DATE OF SERVICE: 07/05/2020 This 64-year-old woman was admitted after partial colectomy, also had some anemia. The patient also had some minimal fluid overload at this time. No chest pain. No palpitation. No fever. BNP slightly elevated. PHYSICAL EXAMINATION: Alert and oriented x3. Pulse is 88, blood pressure 150/80, respirations 16, temperature 98.4, pulse ox 99% on room air. HEENT: Conjunctivae normal. Oral mucosa moist. NECK: No jugular venous distention. No lymph node enlargement. CARDIOVASCULAR: S1, S2, muffled. No S3, no S4, RESPIRATORY: Diminished breath sounds at the bases. ABDOMEN: Soft, status post surgery. LEGS: No edema, no swelling. NERVOUS SYSTEM: No focal motor or sensory deficits. LABS: WBC 18, hemoglobin 9.7. NT proBNP is 2 350. Troponins are negative. ASSESSMENT: 1. Status post partial colectomy and colon cancer of the transverse colon. 2. Anemia secondary to blood loss. 3. Mild fluid overload. 4. Increased BNP. 5. History of hyperlipidemia. 6. Tachycardia. 7. History of degenerative joint disease. 8. Increased WBC, possibly reactive. 9. Increased creatinine with mild acute renal failure. 10.Elevated random glucose. 11.Degenerative joint disease. 12.History of pneumonia. 13.History of hypothyroidism. 14.History of breast cancer. 15.History of appendectomy. 16.History of anxiety. 17.FULL CODE. RECOMMENDATIONS AND DISCUSSION: Recommend to continue current management, continue symptomatic treatment. I would stop the IV fluids and recommend a single dose of Lasix. A 2D echo with Doppler. Otherwise, otherwise closely monitor and closely follow with surgery. Further recommendations to follow. The patient is on a regular diet at this time. MMODL / IJN: [id number] /
[2020-07-05] MEDS: FAMOTIDINE 20 MG TAB PO SCH (21:57)
[2020-07-05] MEDS: MAGNESIUM OXIDE 400 MG TAB PO SCH (21:57)
[2020-07-05] MEDS: CALCIUM CARB-VIT D 500 MG-5 MCG TAB PO SCH (21:57)
[2020-07-05] MEDS: EZETIMIBE 10 MG TAB PO SCH (21:57)
[2020-07-05] MEDS: CYCLOBENZAPRINE 5 MG TAB PO PRN (21:58)
[2020-07-05] MEDS: ZOLPIDEM 5 MG TAB PO PRN (21:58)
[2020-07-06] MEDS: LEVOTHYROXINE 100 MCG TAB PO SCH (06:17)
[2020-07-06] MEDS: SIMETHICONE 80 MG CHEWABLE PO SCH ×3 (10:51→21:06)
[2020-07-06] MEDS: LEVOFLOXACIN 250 MG TAB PO SCH (10:51)
[2020-07-06] MEDS: FAMOTIDINE 20 MG TAB PO SCH ×2 (10:51→21:05)
[2020-07-06] MEDS: MULTIVITAMINS, THERA 1 EACH TAB PO SCH (10:52)
[2020-07-06 11:44] LABS: Basophils # (A) 0.03 X 10*3/uL (0.00-0.10); Basophils % (A) 0.3 %; Eosinophils # (A) 0.47 X 10*3/uL (0.04-0.35); Eosinophils % (A) 4.9 %; HCT 29.4 % (37.2-46.3); HGB 9.6 g/dL (12.0-15.0); Lymphocytes % (A) 13.5 %; MCH 27.7 pg (27.0-32.0); MCHC 32.7 g/dL (32.0-37.0); MCV 84.7 fL (80.0-97.0); Mean Platelet Volume 10.4 fL (9.5-12.2); Monocytes % (A) 9.4 %; Neutrophils # (A) 6.86 X 10*3/uL (1.80-7.70); Neutrophils % (A) 71.3 %; Platelet Count 333 X 10*3/uL (140-440); RBC 3.47 X 10*6/uL (4.10-5.20); RDW 14.3 % (11.5-14.5); WBC 9.62 X 10*3/uL (4.50-10.00)
[2020-07-06 12:40] LABS: African American GFR (CKD) 89.7 (60.0-200.0); Albumin 3.2 g/dL (3.80-4.90); BUN/Creat Ratio 8.75 Ratio (12.00-20.00); Calcium 8.5 mg/dL (8.7-10.3); Globulin 1.6 g/dL (1.6-3.3); Non-African American GFR(CKD) 77.4 (60.0-200.0); Potassium 3.7 mmol/L (3.5-5.5); Total Bilirubin 0.4 mg/dL (0.2-1.2); Total Protein 4.8 g/dL (6.2-8.2)
--- NOTE | 2020-07-06 17:10 | P.PN ---
Progress Note - Text Progress Note Date: 07/06/20 Patient had no further bleeding. Cranial stable at 9.6. On exam vitals are stable. Abdomen soft. Patient will be discharged home.
--- NOTE | 2020-07-06 19:43 | PN ---
PROGRESS NOTE DATE OF SERVICE: 07/06/2020 This 64-year-old woman was admitted after partial colectomy, also had some anemia. The patient also had bilateral leg swelling. No chest pain. No palpitations. No fever. Hemoglobin is stable. PHYSICAL EXAMINATION: Alert and oriented x3. Pulse 117, blood pressure 150/70, respiration 16, temperature 98.8, pulse ox 98% on room air. HEENT: Conjunctivae normal. Oral mucosa moist. NECK: No jugular venous distention. No lymph node enlargement. CARDIOVASCULAR: S1, S2, muffled. No S3, no S4, RESPIRATORY: Diminished breath sounds at the bases. ABDOMEN: Soft, status post surgery. LEGS: Bilateral leg edema. NERVOUS SYSTEM: No focal motor or sensory deficits. LABS: WBC 9.6, hemoglobin 9.6, sodium 142, potassium 3.7. ASSESSMENT: 1. Status post partial colectomy and colon cancer of the transverse colon. 2. Anemia secondary to blood loss. 3. Mild fluid overload. 4. Tachycardia, sinus. 5. Increased BNP. 6. History of hyperlipidemia. 7. History of degenerative joint disease. 8. Increased WBC, possibly reactive. 9. Increased creatinine with mild acute renal failure. 10.Elevated random glucose. 11.Degenerative joint disease. 12.History of pneumonia. 13.History of hypothyroidism. 14.History of breast cancer. 15.History of appendectomy. 16.History of anxiety. 17.FULL CODE. RECOMMENDATIONS AND DISCUSSION: Recommend to continue current medications, continue symptomatic treatment. Otherwise, monitor closely. We will recommend Lasix 40 p.o. daily. Otherwise I would also recommend cut down the fluid intake, 2-D echo with Doppler, repeat hemoglobin, closely follow with surgery. Further recommendation to follow. MMODL / IJN: [id number] /
[2020-07-06] MEDS: CALCIUM CARB-VIT D 500 MG-5 MCG TAB PO SCH (21:05)
[2020-07-06] MEDS: ZOLPIDEM 5 MG TAB PO PRN (21:05)
[2020-07-06] MEDS: MAGNESIUM OXIDE 400 MG TAB PO SCH (21:05)
[2020-07-06] MEDS: CYCLOBENZAPRINE 5 MG TAB PO PRN (21:05)
[2020-07-06] MEDS: EZETIMIBE 10 MG TAB PO SCH (21:09)
--- NOTE | 2020-07-06 22:17 | US ---
EXAMINATION TYPE: US venous doppler duplex LE BI DATE OF EXAM: 07/06/2020 4:31 PM COMPARISON: NONE CLINICAL HISTORY: calf pain. Bilateral leg swelling. No pain per patient. No redness. Recent bowel surgery x few days ago. SIDE PERFORMED: Bilateral TECHNIQUE: The lower extremity deep venous system is examined utilizing real time linear array sonog virginie with graded compression, doppler sonography and color-flow sonography. VESSELS IMAGED: Common Femoral Vein Deep Femoral Vein Greater Saphenous Vein * Femoral Vein Popliteal Vein Small Saphenous Vein * Proximal Calf Veins (* superficial vessels) Right Leg: Negative for DVT Left Leg: Negative for DVT IMPRESSION: Negative exam. No evidence of deep vein thrombosis in both legs.
[2020-07-07] MEDS: LEVOTHYROXINE 100 MCG TAB PO SCH (05:39)
[2020-07-07] MEDS ORDERED: FUROSEMIDE 40 MG TAB PO SCH (09:00)
[2020-07-07] MEDS: SIMETHICONE 80 MG CHEWABLE PO SCH ×2 (09:04→12:30)
[2020-07-07] MEDS: FAMOTIDINE 20 MG TAB PO SCH (09:04)
[2020-07-07] MEDS: LEVOFLOXACIN 250 MG TAB PO SCH (09:04)
[2020-07-07] MEDS: MULTIVITAMINS, THERA 1 EACH TAB PO SCH (09:04)
[2020-07-07 09:57] LABS: Basophils % (A) 0 %; Eosinophils # (A) 0.4 k/uL (0-0.7); Eosinophils % (A) 5 %; HCT 31.1 % (34.0-46.0); HGB 10.5 gm/dL (11.4-16.0); Lymphocytes # (A) 1.2 k/uL (1.0-4.8); Lymphocytes % (A) 13 %; MCH 28.2 pg (25.0-35.0); MCHC 33.8 g/dL (31.0-37.0); MCV 83.2 fL (80.0-100.0); Mean Platelet Volume 6.6; Monocytes # (A) 0.6 k/uL (0-1.0); Monocytes % (A) 6 %; Neutrophils # (A) 6.7 k/uL (1.3-7.7); Neutrophils % (A) 74 %; Platelet Count 374 k/uL (150-450); RBC 3.74 m/uL (3.80-5.40); RDW 14.5 % (11.5-15.5); WBC 9.1 k/uL (3.8-10.6)
[2020-07-07 10:07] LABS: African American GFR (CKD) 84 (>60 ml/min/1.73 sqM); Anion Gap 5 mmol/L; Blood Urea Nitrogen 8 mg/dL (7-17); Calcium 8.7 mg/dL (8.4-10.2); Carbon Dioxide 26 mmol/L (22-30); Chloride 103 mmol/L (98-107); Glucose 94 mg/dL (74-99); Non-African American GFR(CKD) 72 (>60 ml/min/1.73 sqM); Potassium 3.8 mmol/L (3.5-5.1); Sodium 134 mmol/L (137-145)
--- NOTE | 2020-07-07 10:59 | ECHOF ---
Referral Reason:chf MEASUREMENTS -------- HEIGHT: 152.4 cm WEIGHT: 48.1 kg BP: 132/73 RVIDd: 2.3 cm (< 3.3) IVSd: 0.8 cm (0.6 - 1.1) LVIDd: 4.1 cm (3.9 - 5.3) LVPWd: 0.8 cm (0.6 - 1.1) IVSs: 1.1 cm LVIDs: 3.0 cm LVPWs: 1.3 cm LA Diam: 3.1 cm (2.7 - 3.8) LAESV Index (A-L): 28.62 ml/m Ao Diam: 2.7 cm (2.0 - 3.7) AV Cusp: 1.6 cm (1.5 - 2.6) MV EXCURSION: 15.879 mm (> 18.000) MV EF SLOPE: 77 mm/s (70 - 150) EPSS: 0.9 cm MV E Christopher: 0.95 m/s MV DecT: 195 ms MV A Christopher: 1.01 m/s MV E/A Ratio: 0.95 RAP: 5.00 mmHg RVSP: 40.47 mmHg FINDINGS -------- Sinus rhythm. This was a technically adequate study. LV size, wall thickness and systolic function are normal, with an EF greater than 55%. The left poppy tricular size is normal. The right ventricle is normal in size. Normal LA size by volume 22+/-6 ml/m2. The right atrial size is normal. Aortic valve is trileaflet and is mildly thickened. The mitral valve leaflets are mildly thickened. Mild mitral regurgitation is present. The tricuspid valve appears structurally normal. Mild tricuspid regurgitation present. Right vent ricular systolic pressure is normal at < 35 mmHg. There is no pulmonic regurgitation present. The aortic root size is normal. There is no pericardial effusion. CONCLUSIONS -------- 1. LV size, wall thickness and systolic function are normal, with an EF greater than 55%. 2. Normal LA size by volume 22+/-6 ml/m2. 3. Aortic valve is trileaflet and is mildly thickened. 4. Mild mitral regurgitation is present. 5. Mild tricuspid regurgitation present. 6. There is no pericardial effusion. DEFLASH AND WASH OPERATOR: Ginna Rosenberg RDCS
--- NOTE | 2020-07-07 14:06 | P.DS ---
<JhonstacyKarol otero - Last Filed: 07/07/20 13:57> Providers Expected date of discharge: 07/07/20 Hospital Course: Discharge diagnosis 1. Transverse colon mass status post partial colectomy 2. Acute blood loss anemia due to bleeding at the anastomosis site. Patient was symptomatic with sinus tachycardia and shortness of breath. Now improved. 3. Acute kidney injury and low urine output. Resolved 4. Mata catheter associated UTI. Urine culture negative. No further need for antibiotics 5. Fluid overload Hospital course 64-year-old female here today for colon resection. Patient was found on colonoscopy to have a submucosal mass in the region of the splenic flexure. Biopsies were benign. CAT scan confirmed a mass in the distal transverse colon and the submucosal region. By palpation this mass was firm and suspicious per GI. This area was tattooed. Patient is otherwise asymptomatic. She underwent colonoscopy because of a positive cologuard test. Patient is status post partial colectomy for the transverse colon mass. After surgery had been tachycardic and was anemic. She did receive a unit of blood. Patient's continued to remain tachycardic and a few days after surgery she did start having bloody bowel movements. Patient became very symptomatic with tachycardia and shortness of breath her hemoglobin did drop again to 8.1. She then received another unit of blood. Since then her tachycardia has improved. Her hemoglobin is up at 10.5 at discharge. She's had no further bloody bowel movements since Tuesday morning. Patient followed closely by medicine service who is treating her fluid overload. They did add oral Lasix and patient has noticed improvement in her lower extremity edema. Venous Doppler of both legs were completed and also were negative for DVT. She did have an echocardiogram completed that showed an EF of 55% they did know aortic valve is trileaflet and is mildly thickened and mild mitral regurgitation and mild tricuspid regurgitation is present. Reviewed echo findings with medicine service. And they have cleared her for discharge. Patient is up and ambulating. She is tolerating diet. She denies any abdominal pain. She is having bowel movements. She is afebrile. She is stable for discharge. Physician Electronic Development Technician note has been reviewed by physician. Signing provider agrees with the documented findings, assessment, and plan of care. Patient Condition at Discharge: Stable Plan - Discharge Summary Discharge Rx Participant: Yes New Discharge Prescriptions: New Famotidine [Pepcid] 20 mg PO BID 30 Days #60 tab Acetaminophen Tab [Tylenol] 650 mg PO Q6HR PRN tab PRN Reason: Fever and/ or Mild Pain Simethicone 40 mg/0.6 ml Drops [Mylicon Drops] 40 mg PO QID #30 ml Furosemide [Lasix] 40 mg PO DAILY 30 Days #30 tablet Continue Multivitamins, Thera [Multivitamin (formulary)] 1 tab PO DAILY Zolpidem [Ambien] 2.5 mg PO HS PRN PRN Reason: Insomnia Ezetimibe [Zetia] 10 mg PO HS Levothyroxine Sodium [Synthroid] 100 mcg PO DAILY Magnesium 250 mg PO HS Cyclobenzaprine [Flexeril] 2.5 mg PO HS PRN PRN Reason: sleep Calcium + Vitamin D(Dose Unk) 1 tab PO HS Discontinued Aspirin [Adult Low Dose Aspirin EC] 81 mg PO HS Discharge Medication List Ezetimibe [Zetia] 10 mg PO HS 04/24/20 [History] Levothyroxine Sodium [Synthroid] 100 mcg PO DAILY 04/24/20 [History] Multivitamins, Thera [Multivitamin (formulary)] 1 tab PO DAILY 04/24/20 [History] Zolpidem [Ambien] 2.5 mg PO HS PRN 04/24/20 [History] Calcium + Vitamin D(Dose Unk) 1 tab PO HS 06/23/20 [History] Cyclobenzaprine [Flexeril] 2.5 mg PO HS PRN 06/23/20 [History] Magnesium 250 mg PO HS 06/23/20 [History] Acetaminophen Tab [Tylenol] 650 mg PO Q6HR PRN tab 07/07/20 [Rx] Famotidine [Pepcid] 20 mg PO BID 30 Days #60 tab 07/07/20 [Rx] Furosemide [Lasix] 40 mg PO DAILY 30 Days #30 tablet 07/07/20 [Rx] Simethicone 40 mg/0.6 ml Drops [Mylicon Drops] 40 mg PO QID #30 ml 07/07/20 [Rx] Follow up Appointment(s)/Referral(s): Glenn Jimenez MD [Medical Doctor] - 07/16/20 1:50 pm Campbell Dailey MD [Primary Care Provider] - 07/14/20 1:30 pm Ambulatory/Diagnostic Orders: Complete Blood Count w/diff [LAB.AMB] Time Frame: 2 Days, Location: None Selected Patient Instructions/Handouts: Colectomy (DC), Fluid Restriction (DC), Colectomy Diet (DC) Activity/Diet/Wound Care/Special Instructions: No lifting over 10 pounds You may shower. No soaking or tub baths for 2 weeks Very light activity until you are reevaluated at your follow up appointment with your surgeon Activity Limited until follow-up Follow-up with primary care provider Dr. Dailey in 1-2 days Continue with Lasix 40 mg daily and may discontinue once he noticed the swelling has improved Repeat labs in 2-3 days Discharge Disposition: HOME SELF-CARE <Glenn Jimenez - Last Filed: 07/07/20 16:34> Providers Date of admission: 06/30/20 10:01 Attending physician: Glenn Jimenez Consults: 06/30/20 13:38 Consult Physician Routine Consulting Provider: Erin Rivera Consult Reason/Comments: Medical management Do you want consulting provider notified?: Yes Primary care physician: Ashlie Hightower - Discharge Diagnosis(es) (1) Colonic mass Current Visit: Yes Status: Acute Hospital Course: As above. Patient doing well today. Agree with discontinuing antibiotics. A gree with outpatient labs. August discharge. Follow-up one week. Pathology was reviewed. Case discussed with the patient's daughter by phone.
[2020-07-07 14:57] VITALS: BP 144/88; PULSE 93; RESP 16; TEMP 98.4
[2020-07-07 15:47] VITALS: BMI 20.1
--- NOTE | 2020-07-07 16:01 | PN ---
PROGRESS NOTE DATE OF SERVICE: 07/07/2020 This 64-year-old woman was admitted after a partial colectomy, also had some anemia, which the patient improved significantly. No chest pain. No palpitations. The patient also had some fluid overload and leg edema also. Patient is on Lasix. Two-D echo with Doppler showed normal ejection fraction. No chest pain. No palpitations. No fever. The patient has occasional tachycardia. Recommend close outpatient followup with primary physician and possibly Cardiology if no relief. PHYSICAL EXAMINATION: Alert and oriented x3. Pulse 88, blood pressure 145/81, respiration 20, temperature 98.3, pulse ox 98% on room air. HEENT: Conjunctivae normal. NECK: No jugular venous distention. CARDIOVASCULAR: S1, S2 muffled. RESPIRATORY: Breath sounds diminished at the bases. No rhonchi, no crackles. ABDOMEN: Soft, status post surgery. LEGS: ntd NERVOUS SYSTEM: No focal deficits. LABS: WBC 9.1, hemoglobin 10.5, sodium is 134. ASSESSMENT: 1. 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 2. Anemia secondary to blood loss. 3. Mild fluid overload. 4. Tachycardia sinus. 5. Intermittent. 6. Increased BNP. 7. Normal ejection fraction on the 2D echo. 8. Hyperlipidemia. 9. History of degenerative joint disease. 10.Increased WBC, possibly reactive, improved. 11.History of increased creatinine with mild acute renal failure, improved. 12.Elevated random glucose. 13.Degenerative joint disease. 14.History of pneumonia. 15.Hypothyroidism. 16.History of breast cancer. 17.History of appendectomy. 18.History of anxiety. 19.FULL CODE. RECOMMENDATIONS AND DISCUSSION: Recommend to continue current medications, continue symptomatic treatment. Otherwise, closely followup with Dr. Dailey in the outpatient setting. Followup labs , the rest of the recommendations per Surgery. Resume the home medications. Continue with small dose of Lasix. MMODL / IJN: [id number] / MTDD
--- NOTE | 2020-07-17 10:31 | CDI ---
The final diagnosis of the pathology report states: Schwannoma Documentation states: Transverse colon mass Patient history/risk factors: Clinical Indicators: positive cologuard test Treatment: transverse colon colectomy In your professional opinion, do you agree with the pathology report specifying as ? Yes No Other (please specify) Unable to determine Yes MTDD
--- NOTE | 2020-07-24 16:32 | CDI ---
Date: 07/24/2020 04:25:21 PM From: Everardo Rose Phone: Admit Date: 06/30/2020 10:01:00 AM Patient Name: Beatriz Johnston Visit Number: [id number] Discharge Date: 07/07/2020 03:55:00 PM ATTENTION: The Clinical Documentation Specialists (CDI) and [facility] Coding Staff appreciate your assistance in clarifying documentation. Please respond to the clarification below the line at the bottom and electronically sign. The CDI & [facility] Coding staff will review the response and follow-up if needed. Please note: Queries are made part of the Legal Health Record. If you have any questions, please contact the author of this message via ITS. Dr. Glenn Jimenez The final diagnosis of the pathology report states: schwannanoma Documentation states: Patient history/risk factors: Clinical Indicators: discharge summary states pancreatic mass Treatment: In your professional opinion, do you agree with the pathology report specifying as ? Yes No Other (please specify) Unable to determine MTDD
== END 2020-07-07 15:55 | disposition home or self-care (01) | DRG 982 ==
LOC: 2ORMAIN 10:01 → 4SSUR 14:32
PROVIDERS: ADMIT Surgery; ATTEND Surgery
PROC: 0DBL0ZZ Excision of Transverse Colon, Open Approach (ICD-10-PCS; principal; 2020-06-30 12:00)
PROC: 30233N1 Transfusion of Nonautologous Red Blood Cells into Peripheral Vein, Percutaneous Approach (ICD-10-PCS; 2020-07-01)
DX: D36.15 Benign neoplasm of peripheral nerves and autonomic nervous system of abdomen (principal); N17.9 Acute kidney failure, unspecified; K92.2 Gastrointestinal hemorrhage, unspecified; D62 Acute posthemorrhagic anemia; K91.840 Postprocedural hemorrhage of a digestive system organ or structure following a digestive system procedure; E78.5 Hyperlipidemia, unspecified; M19.90 Unspecified osteoarthritis, unspecified site; Z87.01 Personal history of pneumonia (recurrent); Z85.3 Personal history of malignant neoplasm of breast; Z92.3 Personal history of irradiation; Z79.82 Long term (current) use of aspirin; Z88.0 Allergy status to penicillin; Z88.2 Allergy status to sulfonamides; Z80.8 Family history of malignant neoplasm of other organs or systems; Z90.49 Acquired absence of other specified parts of digestive tract; E03.9 Hypothyroidism, unspecified; R00.0 Tachycardia, unspecified; E87.70 Fluid overload, unspecified; R60.0 Localized edema; I08.1 Rheumatic disorders of both mitral and tricuspid valves; K31.89 Other diseases of stomach and duodenum; Z79.890 Hormone replacement therapy; Z87.440 Personal history of urinary (tract) infections
CPT/HCPCS: 71045; 74018; 80048; 80053; 81001; 83735; 83880; 84484; 85025; 85027; 85610; 85730; 86850; 86900; 86901; 86920; 87086; 88309; 88341; 88342; 93005; 93306; 93970

== ENCOUNTER → 2020-07-09 | Outpatient (CLI) | payer MEDICARE, OTHER ==
[2020-07-09 21:33] LABS: Basophils # (A) 0.03 X 10*3/uL (0.00-0.10); Basophils % (A) 0.3 %; Eosinophils % (A) 4.2 %; HCT 33.8 % (37.2-46.3); HGB 10.7 g/dL (12.0-15.0); Lymphocytes # (A) 1.64 X 10*3/uL (0.90-5.00); Lymphocytes % (A) 17.3 %; MCH 27.5 pg (27.0-32.0); MCHC 31.7 g/dL (32.0-37.0); MCV 86.9 fL (80.0-97.0); Monocytes # (A) 0.92 X 10*3/uL (0.20-1.00); Monocytes % (A) 9.7 %; Neutrophils # (A) 6.43 X 10*3/uL (1.80-7.70); Neutrophils % (A) 68.1 %; Platelet Count 521 X 10*3/uL (140-440); RBC 3.89 X 10*6/uL (4.10-5.20); RDW 14.1 % (11.5-14.5); WBC 9.46 X 10*3/uL (4.50-10.00)
[2020-07-10 01:09] LABS: Albumin/Globulin Ratio 2.11 (1.60-3.17); Anion Gap 11.1 mmol/L (4.00-12.00); BUN/Creat Ratio 11.82 Ratio (12.00-20.00); Calcium 8.7 mg/dL (8.7-10.3); Carbon Dioxide 26.9 mmol/L (21.6-31.8); Globulin 1.9 g/dL (1.6-3.3); Non-African American GFR(CKD) 52.6 (60.0-200.0); Potassium 4.8 mmol/L (3.5-5.5); Total Bilirubin 0.3 mg/dL (0.2-1.2); Total Protein 5.9 g/dL (6.2-8.2)
== END | disposition home or self-care (01) ==
LOC: LABWHC1 13:57
PROVIDERS: ATTEND Registered Nurse
DX: D64.9 Anemia, unspecified (principal)
CPT/HCPCS: 36415; 80053; 85025

== ENCOUNTER → 2020-07-16 | Outpatient (CLI) | payer MEDICARE ==
[2020-07-16 23:01] LABS: Basophils # (A) 0.03 X 10*3/uL (0.00-0.10); Basophils % (A) 0.3 %; Eosinophils # (A) 0.13 X 10*3/uL (0.04-0.35); Eosinophils % (A) 1.4 %; HCT 31.9 % (37.2-46.3); HGB 10.1 g/dL (12.0-15.0); Lymphocytes # (A) 1.29 X 10*3/uL (0.90-5.00); Lymphocytes % (A) 13.6 %; MCH 27.4 pg (27.0-32.0); MCHC 31.7 g/dL (32.0-37.0); MCV 86.4 fL (80.0-97.0); Monocytes # (A) 0.87 X 10*3/uL (0.20-1.00); Monocytes % (A) 9.2 %; Neutrophils # (A) 7.15 X 10*3/uL (1.80-7.70); Neutrophils % (A) 75.3 %; Platelet Count 433 X 10*3/uL (140-440); RBC 3.69 X 10*6/uL (4.10-5.20); RDW 13.2 % (11.5-14.5); WBC 9.49 X 10*3/uL (4.50-10.00)
== END | disposition home or self-care (01) ==
LOC: LABWHC1 14:17
PROVIDERS: ATTEND Surgery
DX: K63.9 Disease of intestine, unspecified (principal)
CPT/HCPCS: 36415; 85025

== ENCOUNTER → 2021-04-17 | Outpatient (CLI) | payer MEDICARE ==
--- NOTE | 2021-04-20 09:05 | MM ---
Reason for exam: screening (asymptomatic). Last mammogram was performed 1 year ago. History: Patient is postmenopausal and has history of bilateral breast cancer at age 55. Malignant left breast needle localization of both breasts, January 06, 2012. Lumpectomy of the left breast, January 06, 2012. Malignant left mammotome panel of the left breast, December 17, 2011. Radiation therapy of the left breast, 2011. Benign right mammotome panel of the right breast, July 07, 2007. Implant Removal of both breasts, 1992. Took hormonal contraceptives for 6 months beginning at age 20. Took antineoplastic for 5 years beginning at age 55. Physical Findings: A clinical breast exam by your physician is recommended on an annual basis and results should be correlated with mammographic findings. MG 3D Screening Mammo W/Cad Bilateral CC and MLO view(s) were taken. Prior study comparison: April 15, 2020, bilateral MG 3d diag mammo w/cad [facility]. February 28, 2019, bilateral MG screening mammo w CAD. There are scattered fibroglandular densities. Finding #1: Stable decreased size and architectural distortion in the left breast consistent with known treatment changes. Finding #2: There are typically benign vascular, dystrophic, round calcifications in both breasts. Previous mammotome biopsy in the right breast. There is no discrete abnormality. ASSESSMENT: Benign, BI-RAD 2 RECOMMENDATION: Routine screening mammogram of both breasts in 1 year.
== END | disposition home or self-care (01) ==
LOC: RADMAMWWP 10:00
PROVIDERS: ATTEND Internal Medicine Geriatric Medicine
DX: Z12.31 Encounter for screening mammogram for malignant neoplasm of breast (principal)
CPT/HCPCS: 77063; 77067

== ENCOUNTER → 2022-01-26 | Outpatient (CLI) | payer MEDICARE ==
--- NOTE | 2022-01-26 12:42 | US ---
EXAMINATION TYPE: US thyroid st tissue head/neck DATE OF EXAM: 01/26/2022 COMPARISON: NONE CLINICAL HISTORY: E04.1 THYROID NODULE. GLAND SIZE: Right Lobe: 2.5 x 0.5 x 0.6 cm Overall Parenchyma: homogenous Left Lobe: 2.2 x 0.6 x 0.7 cm Overall Parenchyma: homogeneous Isthmus Thickness: 0.1 cm NODULES RIGHT: # of nodules measured on right: 0 LEFT: # of nodules measured on left: 0 ISTHMUS: # of nodules measured in the isthmus: 0 Bilateral neck scanned, no evidence of lymphadenopathy. IMPRESSION: Diminutive thyroid lobes. Otherwise unremarkable study.
== END | disposition home or self-care (01) ==
LOC: RADUSWWP 12:10
PROVIDERS: ATTEND Internal Medicine Geriatric Medicine
DX: E04.1 Nontoxic single thyroid nodule (principal)
CPT/HCPCS: 76536

== ENCOUNTER → 2022-04-19 | Outpatient (CLI) | payer MEDICARE ==
--- NOTE | 2022-04-19 15:25 | MM ---
Reason for Exam: Screening (asymptomatic). Last screening mammogram was performed 12 month(s) ago. Patient History: Menarche at age 11. First Full-Term at age 19. Postmenopausal. Breast cancer, age 55. Hormonal Contraceptives for 6 months from age 20 until age 20. 01/06/2012, Lumpectomy on the Left side. 01/06/2012, Bilateral Malignant Excisional Biopsy. 12/17/2011, Malignant Core Biopsy on the left side. 07/07/2007, Benign Core Biopsy on the right side. 1992, Bilateral Implant Removal. 2011, Radiation Therapy on the left side. Prior Study Comparison: 02/28/2019 Bilateral Screening Mammogram, [facility]. 04/15/2020 Bilateral Diagnostic Mammogram, [facility]. 04/17/2021 Bilateral Screening Mammogram, [facility]. Tissue Density: The breast tissue is heterogeneously dense. This may lower the sensitivity of mammography. Findings: Analyzed By CAD. Biopsy clip in the right breast upper outer aspect is redemonstrated. Benign-appearing vascular calcifications in both breasts is seen. There is diminished size and distortion in the left breast inner aspect redemonstrated consistent with posttreatment change. There is no suspicious new group of microcalcifications or new suspicious mass in either breast. Overall Assessment: Benign, BI-RAD 2 Management: Screening Mammogram of both breasts in 1 year. A clinical breast exam by your physician is recommended on an annual basis and results should be correlated with mammographic findings. Electronically signed and approved by: Raj Fonseca M.D.
--- NOTE | 2022-04-20 06:53 | BD ---
EXAMINATION TYPE: Axial Bone Density DATE OF EXAM: 04/19/2022 COMPARISON: NONE CLINICAL HISTORY: 66 year old Female. ICD-10 CODE: M81.0 AGE-RELATED OSTEOPOROSIS Height: 60 Weight: 108.1 FRAX RISK QUESTIONS: Alcohol (3 or more units per day): no Family History (Parent hip fracture): no Glucocorticoids (More than 3mos): no (Ex: prednisone, prednisolone, methylprednisolone, dexamethasone, and hydrocortisone). History of Fracture in Adulthood: no Secondary Osteoporosis: 1. Type 1 Diabetes: no 2. Hyperthyroidism: no 3. Menopause before 45: no 4. Malnutrition: no 5. Chronic liver disease: no Rheumatoid Arthritis: no Current Tobacco Use: no RISK FACTORS HISTORY OF: Surgery to Spine/Hip(right/left)/Wrist (right/left): no Family History of Osteoporosis: yes Active: yes Diet low in dairy products/other sources of calcium: yes Postmenopausal woman: yes Lost more than 2 inches in height since high school: no MEDICATIONS: Thyroid Medications: levothyroxine How Lon years Additional History: EXAM MEASUREMENTS: Bone mineral densitometry was performed using the [employer] System. Bone mineral density as measured about the Lumbar spine is: ----- L1-L4(G/cm2): 0.877 T Score Values are as follows: ----- L1: -2.7 ----- L2: -2.8 ----- L3: -1.9 ----- L4: -2.8 ----- L1-L4: -2.5 Bone mineral density has: decreased -0.6 % since study of: 04.15.2020 Bone mineral density about the R hip (g/cm2): 0.780 Bone mineral density about the L hip (g/cm2): 0.716 T Score values are as follows: -----R Neck: -1.9 -----L Neck: -2.3 -----R Total: -2.1 -----L Total: -2.4 Bone mineral density has: decreased -2.0 % since study of: 04.15.2020 FRAX%s: The graph provided illustrates a 11.8% chance for a major osteoporotic fx and a 2.6% chance f or the hips probability for fx in 10 years time. IMPRESSION: Osteoporosis (T Score less than -2.5). There is increased fracture risk and therapy is usually indicated based on age. Re-Screen 1-2 years. NOTE: T-SCORE=SD OF THE YOUNG ADULT MEAN.
== END | disposition home or self-care (01) ==
LOC: RADMAMWWP 14:12
PROVIDERS: ATTEND Internal Medicine Geriatric Medicine
DX: Z12.31 Encounter for screening mammogram for malignant neoplasm of breast (principal); M81.0 Age-related osteoporosis without current pathological fracture; Z78.0 Asymptomatic menopausal state
CPT/HCPCS: 77063; 77067; 77080

== ENCOUNTER → 2023-04-20 | Outpatient (CLI) | payer MEDICARE ==
--- NOTE | 2023-04-26 19:07 | MM ---
Reason for Exam: Screening (asymptomatic). Last screening mammogram was performed 12 month(s) ago. Patient History: Menarche at age 11. First Full-Term at age 19. Postmenopausal. Patient has history of breast feeding. Breast cancer, left, age 55. Hormonal Contraceptives for 6 months from age 20 until age 20. 01/06/2012, Lumpectomy on the Left side. 01/06/2012, Bilateral Malignant Excisional Biopsy. 12/17/2011, Malignant Core Biopsy on the left side. 07/07/2007, Benign Core Biopsy on the right side. 1992, Bilateral Implant Removal. 2011, Radiation Therapy on the left side. Prior Study Comparison: 04/15/2020 Bilateral Diagnostic Mammogram, [facility]. 04/17/2021 Bilateral Screening Mammogram, [facility]. 04/19/2022 Bilateral MG 3D screening mammo w/cad, [facility]. Tissue Density: The breast tissue is heterogeneously dense. This may lower the sensitivity of mammography. Findings: Analyzed By CAD. Postsurgical and posttreatment changes in the left breast. Microclip right breast along with unchanged area of global asymmetry. There is no suspicious group of microcalcifications or new suspicious mass in either breast. Overall Assessment: Benign, BI-RAD 2 Management: Screening Mammogram of both breasts in 1 year. . Patient should continue monthly self-breast exams. A clinical breast exam by your physician is recommended on an annual basis. This exam should not preclude additional follow-up of suspicious palpable abnormalities. Electronically signed and approved by: Jovana Pham M.D. Radiologist
== END | disposition home or self-care (01) ==
LOC: RADMAMWWP 14:07
PROVIDERS: ATTEND Internal Medicine Geriatric Medicine
DX: Z12.31 Encounter for screening mammogram for malignant neoplasm of breast (principal); Z78.0 Asymptomatic menopausal state; Z85.3 Personal history of malignant neoplasm of breast
CPT/HCPCS: 77063; 77067

== ENCOUNTER → 2024-09-19 | Outpatient (CLI) | payer MEDICARE ==
--- NOTE | 2024-09-20 08:42 | MM ---
Reason for Exam: Screening (asymptomatic). Last mammogram was performed 1 year(s) and 5 month(s) ago. Patient History: Menarche at age 11. First Full-Term at age 19. Postmenopausal. Patient has history of breast feeding. Breast cancer, left, age 55. Previous chest radiation therapy at age 55. Hormonal Contraceptives for 6 months from age 20 until age 20. 01/06/2012, Lumpectomy on the Left side. 01/06/2012, Bilateral Malignant Excisional Biopsy. 12/17/2011, Malignant Core Biopsy on the left side. 07/07/2007, Benign Core Biopsy on the right side. 1992, Bilateral Implant Removal. 2011, Radiation Therapy on the left side. Prior Study Comparison: 04/17/2021 Bilateral Screening Mammogram, [facility]. 04/19/2022 Bilateral MG 3D screening mammo w/cad, [facility]. 04/20/2023 Bilateral MG 3D screening mammo w/cad, [facility]. Tissue Density: The breasts are heterogeneously dense, which may obscure small masses. Findings: Analyzed By CAD. Right breast: There is no suspicious group of microcalcifications or new suspicious mass. Left breast: There is no suspicious group of microcalcifications or new suspicious mass. Overall Assessment: Negative, BI-RAD 1 Management: Screening Mammogram of both breasts in [address] [facility] will attempt to contact patient to return for supplemental views and ultrasound if indicated. Patient should continue monthly self-breast exams. A clinical breast exam by your physician is recommended on an annual basis. This exam should not preclude additional follow-up of suspicious palpable abnormalities. Note on Jeanine scores and lifetime risk: 1. A Jeanine score greater than 3% is considered moderate risk. If this is the case, consider specialist referral to assess eligibility for a risk reducing agent. 2. If overall lifetime risk for the development of breast cancer is 20% or higher, the patient may qualify for future screening with alternating mammogram and breast MRI. [facility], , 09/20/2024 8:38 AM. Electronically signed and approved by: Beau Gunderson DO
--- NOTE | 2024-09-20 12:12 | BD ---
EXAMINATION TYPE: Axial Bone Density DATE OF EXAM: 09/19/2024 CLINICAL HISTORY: 68 years old Female. ICD-10 CODE: M81.0 AGE RELATED OSTEO , Additional History: Height: 60 Weight: 111 FRAX RISK QUESTIONS: History of Fracture in Adulthood: yes Secondary Osteoporosis: RISK FACTORS HISTORY OF: MEDICATIONS: Thyroid Medications: Which medication: Levothyroxine How Lon years EXAM MEASUREMENTS: Bone mineral densitometry was performed using the [employer] System. Bone mineral density as measured about the Lumbar spine is: ----- L1-L4(G/cm2): 0.922 T Score Values are as follows: ----- L1: -2.3 ----- L2: -2.4 ----- L3: -1.7 ----- L4: -2.4 ----- L1-L4: -2.2 Z Score Values are as follows: ----- L1: -0.1 ----- L2: -0.3 ----- L3: 0.4 ----- L4: -0.2 ----- L1-L4: 0.0 Bone mineral density has: Increased 5.1% since study of: 04-19-22 Bone mineral density about the R hip (g/cm2): 0.725 Bone mineral density about the L hip (g/cm2): 0.683 T Score values are as follows: -----R Neck: -2.1 -----L Neck: -2.3 -----R Total: -2.2 -----L Total: -2.6 Z Score values are as follows: -----R Neck: -0.1 -----L Neck: -0.3 -----R Total: -0.5 -----L Total: -0.8 Bone mineral density has: Decreased -3.2% since study of: 04-19-22 FRAX%s: The graph provided illustrates a 19.7% chance for a major osteoporotic fx and a 4.7% chance f or the hips probability for fx in 10 years time. IMPRESSION: Osteoporosis (T Score less than -2.5). There is increased fracture risk and therapy is usually indicated based on age. Re-Screen 1-2 years. NOTE: T-SCORE=SD OF THE YOUNG ADULT MEAN. [facility], , 09/20/2024 12:09 PM
== END | disposition home or self-care (01) ==
LOC: RADBDWWP 13:46
PROVIDERS: ATTEND Internal Medicine Geriatric Medicine
DX: Z12.31 Encounter for screening mammogram for malignant neoplasm of breast (principal); M81.0 Age-related osteoporosis without current pathological fracture; R92.333 Mammographic heterogeneous density, bilateral breasts; Z78.0 Asymptomatic menopausal state; Z85.3 Personal history of malignant neoplasm of breast; Z92.0 Personal history of contraception
CPT/HCPCS: 77063; 77067; 77080